=== PATIENT | female | born 1955 | race Caucasian/White ===

== ENCOUNTER 2017-08-16 08:17 | Outpatient (CLI) | payer BC | END 2017-08-16 08:18 | disposition home or self-care (01) | LOC: BICMAMMO 08:17 | PROVIDERS: ATTEND Internal Medicine | DX: Z13.820 Encounter for screening for osteoporosis (principal); M85.80 Other specified disorders of bone density and structure, unspecified site | CPT/HCPCS: 77080 ==

== ENCOUNTER 2018-09-19 08:16 | Outpatient (CLI) | payer BC | END 2018-09-19 08:17 | disposition home or self-care (01) | LOC: BICMAMMO 08:16 | PROVIDERS: ATTEND Internal Medicine | DX: Z12.31 Encounter for screening mammogram for malignant neoplasm of breast (principal) | CPT/HCPCS: 77063; 77067 ==

== ENCOUNTER 2019-05-09 07:35 | Outpatient (CLI) | payer BC ==
--- NOTE | 2019-05-09 11:11 | MRI ---
LUMBAR SPINE MRI NONCONTRAST: INDICATION: Lumbar disk herniation. COMPARISON: No prior imaging comparison. FINDINGS: There is right convexity curvature, centered at the L2 level. Prominent degenerative marrow signal a lteration is present involving the multiple segments of the lumbar spine, most pronounced at L1-2. M ultilevel end plate degeneration, Schmorl's node formation, marginal osteophytosis, and disk space na rrowing present. There is also multilevel bilateral facet osteoarthritis, greatest inferiorly within the lumbar spine, moderate to severe in degree. Conus medullaris terminates at the L1-2 level. L5-S1: There is a broad-based disk-osteophyte with a superimposed moderate central disk protrusion e ffacing the terminal thecal sac with mild to moderate central canal stenosis. There is moderate to s evere left and moderate right neural foraminal stenosis. L4-5: Right asymmetric broad-based disk-osteophyte is present with moderate central canal stenosis m ore pronounced to the right with impingement of the traversing right L5 nerve root. Severe right minda ral foraminal stenosis. No significant left foraminal narrowing. L3-4: Left asymmetric broad-based disk-osteophyte complex with severe central canal stenosis. There is asymmetric right facet osteoarthritis combined with disk-osteophyte complex producing severe righ t neural foraminal stenosis. There is moderate left neural foraminal stenosis. Broad-based disk-ost eophyte with moderate to severe central canal stenosis. Moderate left and mild to moderate right minda ral foraminal stenosis. L1-2: Large left paracentral through left subarticular disk extrusion is present with severe stenosi s of the left aspect of the thecal sac and left subarticular zone with impingement of the traversing left L2 nerve root and severe left neural foraminal stenosis. Mild narrowing of the right neural for amen is present due to disk-osteophyte formation and facet hypertrophy. T12-L1: Right paracentral disk protrusion produces mild effacement of the right ventral thecal sac. IMPRESSION: Severe multilevel degenerative disease throughout the lumbar spine, including multilevel disk protrus ions. This is most pronounced at the L1-2 level where a large left asymmetric disk extrusion produce s severe compromise of the left aspect of the thecal sac, left neural foramen, and left side nerve ro ots, as discussed above. POS: C
== END 2019-05-09 07:36 | disposition home or self-care (01) ==
LOC: SCSMRI 07:35
PROVIDERS: ATTEND Anesthesiology Pain Medicine
DX: M51.26 Other intervertebral disc displacement, lumbar region (principal); M47.816 Spondylosis without myelopathy or radiculopathy, lumbar region
CPT/HCPCS: 72148

== ENCOUNTER 2019-09-26 07:24 | Outpatient (CLI) | payer BC ==
--- NOTE | 2019-09-26 16:47 | EKG ---
Test Reason : Blood Pressure : / mmHG Vent. Rate : 082 BPM Atrial Rate : 082 BPM P-R Int : 148 ms QRS Dur : 074 ms QT Int : 370 ms P-R-T Axes : 081 078 063 degrees QTc Int : 432 ms Poor data quality, interpretation may be adversely affected Normal sinus rhythm Normal ECG When compared with ECG of 18-MAY-1994 11:10, Vent. rate has decreased BY 84 BPM QRS duration has decreased ST no longer depressed in Inferior leads Non-specific change in ST segment in Lateral leads T wave inversion no longer evident in Inferior leads Nonspecific T wave abnormality no longer evident in Lateral leads Confirmed by DR. Adam LAO ([id number]) on 09/26/2019 4:47:00 PM Referred By: Confirmed By:DR. Adam LAO
== END 2019-09-26 07:25 | disposition home or self-care (01) ==
LOC: LABBT 07:24
PROVIDERS: ATTEND Neurological Surgery
DX: Z01.810 Encounter for preprocedural cardiovascular examination (principal); M54.16 Radiculopathy, lumbar region
CPT/HCPCS: 93005; 93010

== ENCOUNTER 2019-10-03 05:35 | Day surgery (SDC) | payer BC ==
[2019-09-26 09:01] VITALS: BMI 20.2
--- NOTE | 2019-10-02 18:57 | HP ---
HISTORY OF PRESENT ILLNESS: Ms. Elias is a pleasant 64-year-old woman presenting with a long protracted course of left flank pain which radiates around to the lateral component on the left side. She has an MRI scan that shows a large L1-2 disk herniation which is likely the culprit. Dr. Taveras has been injecting in which seems to be helping her to some degree. Pain is debilitating when it occurs. She is contemplating, treated surgically and is here to discuss her options. PAST MEDICAL HISTORY: Significant for hypertension, chronic pain syndrome, gastroesophageal reflux disease. CURRENT MEDICATIONS: 1. Meloxicam. 2. Carvedilol. 3. Amlodipine. 4. Gabapentin. 5. Tolterodine. 6. Losartan. 7. Pantoprazole. ALLERGIES: ALLERGIC TO VASOTEC. PAST SURGICAL HISTORY: Unspecified partial left hip replacement, total hip replacement on the right. PHYSICAL EXAMINATION: The patient is alert and oriented x3. Gait is mildly antalgic. Lower extremity motor exam is normal. ASSESSMENT: Lumbar disk herniation with lumbar radiculopathy. PLAN: Dr. Quarles met with the patient, who reviewed her imaging and advocated for L1-2 diskectomy. He explained to the patient the risks, benefits, and alternatives to the procedure. The patient expressed understanding and elected to move forward with surgery as discussed. I do believe the patient is mentally competent and capable of making medical decisions for herself. We will move forward with surgery as planned. Job ID: [id number]
[2019-10-03] MEDS ORDERED: Bupivacaine PF 0.5% 30 ML VIAL ONE (06:24)
[2019-10-03] MEDS ORDERED: Thrombin 5000 UNITS/5 ML VIAL ONE (06:24)
[2019-10-03] MEDS ORDERED: EPINEPHrine 1 MG/ML AMP ONE (06:24)
[2019-10-03] MEDS ORDERED: Midazolam HCl 2 mg/2 ml Vial ONE (06:51)
[2019-10-03] MEDS ORDERED: Fentanyl 100 MCG/2 ML VIAL ONE ×4 (06:57→08:55)
[2019-10-03] MEDS ORDERED: Ondansetron PF 4 MG/2 ML Vial ONE (10:16)
[2019-10-03] MEDS ORDERED: Lidocaine 1% PF 5 ML VIAL ONE (10:16)
[2019-10-03] MEDS ORDERED: Dexamethasone 20 MG/5 ML VIAL ONE (10:16)
[2019-10-03] MEDS ORDERED: EPHEDRINE 25 MG/5 ML SYRINGE ONE (10:16)
[2019-10-03] MEDS ORDERED: PROPOFOL 200 MG/20 ML VIAL ONE (10:16)
[2019-10-03] MEDS ORDERED: PHENYLEPHRINE-NS 100 MCG/ML 10 ML SYRINGE ONE (10:16)
[2019-10-03] MEDS ORDERED: Glycopyrrolate 0.2 MG/ML 5 ML SYRINGE ONE (10:16)
[2019-10-03] MEDS ORDERED: Rocuronium Bromide 10 MG/ML (10ML VIAL) ONE (10:16)
[2019-10-03] MEDS ORDERED: HYDROcodone/Acetaminophen 5/325 mg Tablet ONE (11:05)
--- NOTE | 2019-10-03 11:21 | OP ---
DATE OF PROCEDURE: 10/03/2019 APPEALS BOARD REFEREE: Dionte Aaron PA-C INDICATION: Pain. DIAGNOSIS: Lumbar radiculopathy. PROCEDURES PERFORMED: Left L1-L2 hemilaminectomy, medial facetectomy, diskectomy. ANESTHESIA: General. DESCRIPTION OF PROCEDURE: The patient was brought into the operating room and placed under general anesthesia. She was flipped from the supine to prone position on the operating room table. A linear incision was planned over the L1-L2 segment. After prepping and draping and after an appropriate preoperative pause, the incision was created. The soft tissues were swept left of midline. A self-retaining retractors placed and high-speed cutting drill bit as well as 1 and 2 and 3 mm Kerrisons were used to perform a laminectomy along the inferior aspect of L1 on the left and superior aspect of L2. The facet joint was decompressed laterally in order to decompress the lateral recesses. Disk material was identified at the L1-L2 segment on the left. An annulotomy was created in the disk space, where additional disk material was removed into the lateral recesses and therefore, the exiting L1 and descending L2 nerve roots were decompressed. The wound was irrigated. Hemostasis was maintained throughout. The wound was then closed in anatomic layers and a pressure dressing was applied. There were no known procedural complications. Job ID: [id number]
== END 2019-10-03 11:45 | disposition home or self-care (01) ==
LOC: SDC 05:35
PROVIDERS: ATTEND Neurological Surgery
PROC: 0SB20ZZ Excision of Lumbar Vertebral Disc, Open Approach (ICD-10-PCS; principal; 2019-10-03)
PROC: 01NB0ZZ Release Lumbar Nerve, Open Approach (ICD-10-PCS; principal; 2019-10-03)
DX: M51.16 Intervertebral disc disorders with radiculopathy, lumbar region (principal); I10 Essential (primary) hypertension; K21.9 Gastro-esophageal reflux disease without esophagitis; G89.4 Chronic pain syndrome; Z79.1 Long term (current) use of non-steroidal anti-inflammatories (NSAID); Z79.899 Other long term (current) drug therapy; Z88.5 Allergy status to narcotic agent; Z88.6 Allergy status to analgesic agent; Z88.8 Allergy status to other drugs, medicaments and biological substances; Z96.643 Presence of artificial hip joint, bilateral
CPT/HCPCS: 76000; J0171; J0690; J1100; J2001; J2250; J2405; J2704; J3010; S0020

== ENCOUNTER 2020-06-03 08:07 | Outpatient (CLI) | payer BC ==
--- NOTE | 2020-06-03 09:01 | BD ---
DEXA bone density scan: 06/03/2020 HISTORY: Postmenopausal female undergoing screening for osteoporosis. FINDINGS: Lumbar Spine BMD (g/cm2) L1 1.170 T-Score 1.6 L2 1.366 T-Score 3.1 L3 1.283 T-Score 1.8 L4 1.285 T-Score 2.0 L1-L4 1.273 T-Score 2.1 The performing technologist reports that no additional areas could be evaluated secondary to postoper ative hardware. There is significant degenerative change with associated sclerosis which may falsely elevate the bone mineral density on this exam. IMPRESSION: Bone mineral density appears normal. Please see above discussion. Transcribed Date/Time: 06/03/2020 10:51 AM
== END 2020-06-03 08:08 | disposition home or self-care (01) ==
LOC: BICMAMMO 08:07
PROVIDERS: ATTEND Internal Medicine
DX: M80.00XD Age-related osteoporosis with current pathological fracture, unspecified site, subsequent encounter for fracture with routine healing (principal)
CPT/HCPCS: 77080

== ENCOUNTER 2021-07-25 10:58 | Outpatient (CLI) | payer BC | END 2021-07-25 10:59 | disposition home or self-care (01) | LOC: PET 10:58 | PROVIDERS: ATTEND Internal Medicine Hematology & Oncology | DX: C15.5 Malignant neoplasm of lower third of esophagus (principal) | CPT/HCPCS: 78815; A9552 ==

== ENCOUNTER 2021-12-30 08:51 | Day surgery (SDC) | payer BC ==
[2021-12-30] MEDS ORDERED: diphenhydrAMINE 25 MG CAP ONE (09:59)
[2021-12-30] MEDS ORDERED: Acetaminophen 325 MG TAB ONE (09:59)
[2021-12-30] MEDS ORDERED: Acetaminophen 500 MG TAB ONE (09:59)
[2021-12-30] MEDS ORDERED: Lorazepam 2 MG/ML VIAL ONE (11:35)
[2021-12-30] MEDS ORDERED: Lorazepam 2 MG/ML VIAL SLOW IVP SCH (12:15)
[2021-12-30 13:12] VITALS: BP 147/70; TEMP 97.6
== END 2021-12-30 13:12 | disposition home or self-care (01) ==
LOC: ONC/OP 08:51
PROVIDERS: ATTEND Internal Medicine Hematology & Oncology
PROC: 30233N1 Transfusion of Nonautologous Red Blood Cells into Peripheral Vein, Percutaneous Approach (ICD-10-PCS; principal; 2021-12-30)
DX: D64.9 Anemia, unspecified (principal); D69.6 Thrombocytopenia, unspecified; Z88.5 Allergy status to narcotic agent; Z88.6 Allergy status to analgesic agent; Z88.8 Allergy status to other drugs, medicaments and biological substances
CPT/HCPCS: 36430; 86850; 86900; 86901; J1642; J2060; P9016

== ENCOUNTER 2022-09-05 15:59 | Inpatient (IN) | payer MEDICARE ==
[2022-09-05] MEDS ORDERED: fentaNYL PF 100 MCG/2 ML SYRINGE ONE (17:20)
[2022-09-05] MEDS ORDERED: Vancomycin 1 GM VIAL ONE (17:30)
[2022-09-05] MEDS ORDERED: Neomycin-Polymyxin 1 ML AMP ONE (17:30)
[2022-09-05] MEDS ORDERED: Ondansetron PF 4 MG/2 ML Vial ONE (18:39)
[2022-09-05] MEDS ORDERED: Lidocaine 1% PF 5 ML VIAL ONE (18:39)
[2022-09-05] MEDS ORDERED: Glycopyrrolate 0.2 MG/ML 5 ML SYRINGE ONE (18:39)
[2022-09-05] MEDS ORDERED: PHENYLEPHRINE-NS 100 MCG/ML 10 ML SYRINGE ONE (18:39)
[2022-09-05] MEDS ORDERED: NEOSTIGMINE 3 MG/3 ML SYR 3 MG/3 ML SYRINGE ONE (18:39)
[2022-09-05] MEDS ORDERED: PROPOFOL 200 MG/20 ML VIAL ONE (18:39)
[2022-09-05] MEDS ORDERED: Rocuronium Bromide 10 MG/ML (10ML VIAL) ONE (18:39)
[2022-09-05] MEDS ORDERED: Albumin 5% 500 ML ONE (19:16)
[2022-09-05] MEDS ORDERED: Albumin 5% 0 ML ONE (19:16)
[2022-09-05] MEDS ORDERED: HYDROcodone/Acetaminophen 10/325 mg Tablet PO PRN ×2 (20:02)
[2022-09-05] MEDS ORDERED: tiZANidine HCl 4 MG TAB PO PRN (20:03)
[2022-09-05] MEDS: clonazePAM 0.5 MG TAB PO SCH (21:00)
[2022-09-05] MEDS ORDERED: Bisacodyl 10 MG SUPP PR PRN (21:03)
[2022-09-05] MEDS ORDERED: Bisacodyl 5 MG TAB PO PRN (21:03)
[2022-09-05] MEDS: Lactated Ringer's 1,000 ML IV SCH (21:15)
[2022-09-05] MEDS ORDERED: Dextrose 5% in Water 1,000 ML IV PRN (21:16)
[2022-09-05] MEDS ORDERED: HumaLOG 300 UNITS/3 ML VIAL SC PRN ×2 (21:16)
[2022-09-05] MEDS ORDERED: Dextrose 50% Abboject 50 ML SYRINGE SLOW IVP PRN (21:16)
[2022-09-05] MEDS: Morphine 2 MG/ML VIAL SLOW IVP PRN (21:27)
[2022-09-05] MEDS ORDERED: Ampicillin 2 GM in Sodium Chloride 0.9% 100 ML IVPB SCH (21:30)
[2022-09-05] MEDS: Potassium Chloride 20 MEQ in Premix Bag 1 BAG IVPB SCH (22:18)
[2022-09-05] MEDS: hydrALAZINE 20 MG/ML VIAL SLOW IVP PRN (22:20)
[2022-09-05] MEDS ORDERED: GUAIFENESIN SF SOLN 200 MG/10 ML UDCUP PO PRN (22:40)
[2022-09-06] MEDS: Potassium Chloride 20 MEQ in Premix Bag 1 BAG IVPB SCH (00:15)
[2022-09-06] MEDS ORDERED: Labetalol HCl 100 MG/20 ML VIAL SLOW IVP PRN (00:26)
[2022-09-06] MEDS: Ampicillin 2 GM in Sodium Chloride 0.9% 100 ML IVPB SCH ×6 (01:00→19:50)
[2022-09-06 04:53] LABS: Hemoglobin A1c 5.1 % (4.0-6.0)
[2022-09-06 04:54] LABS: #Lymphocytes 0.6 thou/uL (1.20-3.40); #Monocytes 0.5 thou/uL (0.11-0.59); #Neutrophils 10.3 thou/uL (1.40-6.50); %Eosinophils 0.2 % (0.0-10.0); %Lymphocytes 5.5 % (21.0-51.0); %Monocytes 4.3 % (0.0-10.0); %Neutrophils 90.1 % (42.0-75.0); ALT (SGPT) 17 U/L (8-55); AST (SGOT) 17 U/L (5-34); Alkaline Phosphatase 68 U/L (40-110); Anion Gap 13 mmol/L (10-20); BUN (Urea Nitrogen) 7 mg/dL (9.8-20.1); Bilirubin, Direct 0.3 mg/dL (0.1-0.3); Bilirubin, Total 0.7 mg/dL (0.2-1.2); Calc. Creatinine Clearance 71 mL/min (70-130); Calcium 8.8 mg/dL (7.8-10.44); Carbon Dioxide 29 mmol/L (23-31); Cardiac Risk 3.1 (Less than 4.5); Chloride 95 mmol/L (98-107); Cholesterol 119 mg/dl (< 200 Desired); Estimated GFR 107; Glucose 125 mg/dL (80-115); HDL Cholesterol 38 mg/dL (>60 Neg Risk); Hemoglobin 9.1 g/dL (12.0-16.0); LDL Cholesterol, Calculated 60 mg/dL; Magnesium 1.7 mg/dL (1.6-2.6); Mean Corpuscular HGB CONC 32.3 g/dL (32.0-36.0); Mean Corpuscular Hemoglobin 29.2 pg (27.0-31.0); Mean Corpuscular Volume 90.4 fl (78.0-98.0); Mean Platelet Volume 8.1 fL (7.4-10.4); Platelet Count 297 10x3/uL (130-400); Potassium 3.8 mmol/L (3.5-5.1); Protein, Total 6.1 g/dL (5.8-8.1); RBC Distribution Width 18.1 % (11.5-14.5); Sodium 133 mmol/L (136-145); Triglycerides 104 mg/dL (Less than 150); White Blood Cell (WBC) Count 11.4 10x3/uL (4.8-10.8)
[2022-09-06] MEDS: Morphine 2 MG/ML VIAL SLOW IVP PRN ×2 (07:47→22:39)
[2022-09-06] MEDS ORDERED: Senokot S 8.6-50 MG TAB PO SCH (09:00)
[2022-09-06] MEDS ORDERED: clonazePAM 0.5 MG TAB PO SCH (09:00)
[2022-09-06] MEDS: Ondansetron PF 4 MG/2 ML Vial IVP PRN ×2 (09:35→14:53)
[2022-09-06] MEDS: Losartan 25 MG TAB PO SCH (09:36)
[2022-09-06] MEDS: Folic Acid 1 MG TAB PO SCH (09:36)
[2022-09-06] MEDS: clonazePAM 0.5 MG TAB PO SCH ×3 (09:36→17:52)
[2022-09-06] MEDS: Carvedilol 25 MG TAB PO SCH ×2 (09:36→16:39)
[2022-09-06] MEDS: HYDROcodone/Acetaminophen 5/325 mg Tablet PO PRN ×3 (09:47→19:45)
[2022-09-06] MEDS: Ferrous Sulfate 325 MG TAB PO SCH (09:50)
[2022-09-06] MEDS: Polyethylene Glycol 3350 17 GM Packet PO SCH (09:51)
[2022-09-06] MEDS: Lansoprazole 15 MG/5 ML (BATCHED)UDCUP PO SCH (12:38)
[2022-09-06] MEDS: Lactated Ringer's 1,000 ML IV SCH (17:51)
[2022-09-07] MEDS: Ampicillin 2 GM in Sodium Chloride 0.9% 100 ML IVPB SCH ×6 (00:53→21:05)
[2022-09-07] MEDS: HYDROcodone/Acetaminophen 5/325 mg Tablet PO PRN ×3 (00:53→22:23)
[2022-09-07] MEDS: Lactated Ringer's 1,000 ML IV SCH (03:49)
[2022-09-07] MEDS: hydrALAZINE 20 MG/ML VIAL SLOW IVP PRN (04:39)
[2022-09-07] MEDS: clonazePAM 0.5 MG TAB PO SCH ×2 (04:52→17:23)
[2022-09-07 06:40] LABS: #Lymphocytes 0.7 thou/uL (1.20-3.40); #Monocytes 0.7 thou/uL (0.11-0.59); #Neutrophils 12.8 thou/uL (1.40-6.50); %Eosinophils 0.3 % (0.0-10.0); %Lymphocytes 4.9 % (21.0-51.0); %Monocytes 4.7 % (0.0-10.0); %Neutrophils 90.1 % (42.0-75.0); Hemoglobin 8.4 g/dL (12.0-16.0); Mean Corpuscular HGB CONC 32.8 g/dL (32.0-36.0); Mean Corpuscular Hemoglobin 29.4 pg (27.0-31.0); Mean Corpuscular Volume 89.6 fl (78.0-98.0); Mean Platelet Volume 8.6 fL (7.4-10.4); Platelet Count 260 10x3/uL (130-400); RBC Distribution Width 18.7 % (11.5-14.5); Red Blood Cell (RBC) Count 2.86 mill/uL (4.20-5.40); White Blood Cell (WBC) Count 14.2 10x3/uL (4.8-10.8)
[2022-09-07 07:00] LABS: Anion Gap 13 mmol/L (10-20); BUN (Urea Nitrogen) 9 mg/dL (9.8-20.1); Calc. Creatinine Clearance 75 mL/min (70-130); Calcium 8.4 mg/dL (7.8-10.44); Carbon Dioxide 27 mmol/L (23-31); Chloride 95 mmol/L (98-107); Estimated GFR 108; Glucose 100 mg/dL (80-115); Magnesium 1.6 mg/dL (1.6-2.6); Potassium 2.9 mmol/L (3.5-5.1); Sodium 132 mmol/L (136-145)
[2022-09-07] MEDS ORDERED: Potassium Chloride 10 MEQ TAB PO SCH (08:00)
[2022-09-07] MEDS: Carvedilol 25 MG TAB PO SCH ×2 (10:33→17:24)
[2022-09-07] MEDS: Losartan 25 MG TAB PO SCH (10:33)
[2022-09-07] MEDS: Lansoprazole 15 MG/5 ML (BATCHED)UDCUP PO SCH (10:33)
[2022-09-07] MEDS: Ferrous Sulfate 325 MG TAB PO SCH (10:33)
[2022-09-07] MEDS: Folic Acid 1 MG TAB PO SCH (10:33)
[2022-09-07] MEDS: Polyethylene Glycol 3350 17 GM Packet PO SCH (10:33)
[2022-09-07] MEDS ORDERED: Sodium Chloride 0.9% 500 ML IVPB SCH (12:30)
[2022-09-07] MEDS: D5 NS w/ 40 mEq KCl 1,000 ML IV SCH ×2 (13:19→21:08)
[2022-09-07] MEDS ORDERED: Sodium Chloride 0.9% 500 ML IV SCH (14:00)
[2022-09-08] MEDS: Ampicillin 2 GM in Sodium Chloride 0.9% 100 ML IVPB SCH ×6 (01:02→20:00)
[2022-09-08] MEDS: clonazePAM 0.5 MG TAB PO SCH ×2 (05:36→17:31)
[2022-09-08 06:26] LABS: #Lymphocytes 0.7 thou/uL (1.20-3.40); #Monocytes 0.5 thou/uL (0.11-0.59); %Eosinophils 0.5 % (0.0-10.0); %Lymphocytes 6.7 % (21.0-51.0); %Monocytes 4.5 % (0.0-10.0); %Neutrophils 88.3 % (42.0-75.0); Hemoglobin 7.5 g/dL (12.0-16.0); Mean Corpuscular HGB CONC 31.5 g/dL (32.0-36.0); Mean Corpuscular Hemoglobin 28.4 pg (27.0-31.0); Mean Corpuscular Volume 90.2 fl (78.0-98.0); Mean Platelet Volume 7.8 fL (7.4-10.4); Platelet Count 247 10x3/uL (130-400); RBC Distribution Width 18.4 % (11.5-14.5); Red Blood Cell (RBC) Count 2.64 mill/uL (4.20-5.40); White Blood Cell (WBC) Count 10.1 10x3/uL (4.8-10.8)
[2022-09-08 06:49] LABS: Anion Gap 12 mmol/L (10-20); BUN (Urea Nitrogen) 10 mg/dL (9.8-20.1); Calc. Creatinine Clearance 78 mL/min (70-130); Carbon Dioxide 27 mmol/L (23-31); Chloride 99 mmol/L (98-107); Estimated GFR 109; Glucose 109 mg/dL (80-115); Magnesium 1.5 mg/dL (1.6-2.6); Potassium 2.7 mmol/L (3.5-5.1); Sodium 135 mmol/L (136-145)
[2022-09-08] MEDS: D5 NS w/ 40 mEq KCl 1,000 ML IV SCH ×2 (07:26→18:12)
[2022-09-08] MEDS: Carvedilol 25 MG TAB PO SCH ×2 (08:45→17:31)
[2022-09-08] MEDS: Lansoprazole 15 MG/5 ML (BATCHED)UDCUP PO SCH (08:46)
[2022-09-08] MEDS: Ferrous Sulfate 325 MG TAB PO SCH (08:46)
[2022-09-08] MEDS: Folic Acid 1 MG TAB PO SCH (08:46)
[2022-09-08] MEDS: Losartan 25 MG TAB PO SCH (08:46)
[2022-09-08] MEDS: HYDROcodone/Acetaminophen 5/325 mg Tablet PO PRN ×3 (08:53→21:22)
[2022-09-08] MEDS ORDERED: Magnesium 2 GM/50 ML(in water) 2 GM in Premix Bag 1 BAG IVPB SCH (09:00)
[2022-09-08] MEDS: Polyethylene Glycol 3350 17 GM Packet PO SCH (10:11)
[2022-09-08] MEDS ORDERED: Floranex 1 GM Packet PO SCH ×2 (11:15→12:00)
[2022-09-08] MEDS: Potassium Chloride 20 MEQ/100 ML PREMIX BAG IVPB SCH ×2 (11:26→14:07)
[2022-09-08] MEDS: cefTRIAXone\\ROCEPHIN 2 GM in Sodium Chloride 0.9% 100 ML IVPB SCH (16:12)
[2022-09-08] MEDS: Morphine 2 MG/ML VIAL SLOW IVP PRN (20:00)
[2022-09-09] MEDS: Morphine 2 MG/ML VIAL SLOW IVP PRN ×2 (00:25→04:04)
[2022-09-09] MEDS: Ampicillin 2 GM in Sodium Chloride 0.9% 100 ML IVPB SCH ×6 (00:25→20:54)
[2022-09-09] MEDS: cefTRIAXone\\ROCEPHIN 2 GM in Sodium Chloride 0.9% 100 ML IVPB SCH ×2 (01:27→14:33)
[2022-09-09] MEDS: HYDROcodone/Acetaminophen 5/325 mg Tablet PO PRN ×3 (03:10→15:22)
[2022-09-09] MEDS: clonazePAM 0.5 MG TAB PO SCH ×2 (05:21→17:36)
[2022-09-09] MEDS: D5 NS w/ 40 mEq KCl 1,000 ML IV SCH ×3 (05:22→22:56)
[2022-09-09 06:22] LABS: #Eosinphils 0.1 thou/uL (0.0-0.7); #Lymphocytes 0.5 thou/uL (1.20-3.40); #Monocytes 0.5 thou/uL (0.11-0.59); #Neutrophils 8.8 thou/uL (1.40-6.50); %Eosinophils 0.6 % (0.0-10.0); %Lymphocytes 5.4 % (21.0-51.0); Mean Corpuscular HGB CONC 31.6 g/dL (32.0-36.0); Mean Corpuscular Hemoglobin 29.4 pg (27.0-31.0); Mean Platelet Volume 9.5 fL (7.4-10.4); Platelet Count 123 10x3/uL (130-400); RBC Distribution Width 18.5 % (11.5-14.5); Red Blood Cell (RBC) Count 2.04 mill/uL (4.20-5.40); White Blood Cell (WBC) Count 9.9 10x3/uL (4.8-10.8)
[2022-09-09 07:21] LABS: #Eosinphils 0.1 thou/uL (0.0-0.7); #Lymphocytes 0.6 thou/uL (1.20-3.40); #Monocytes 0.4 thou/uL (0.11-0.59); #Neutrophils 9.4 thou/uL (1.40-6.50); %Eosinophils 0.6 % (0.0-10.0); %Lymphocytes 6.1 % (21.0-51.0); %Monocytes 3.7 % (0.0-10.0); %Neutrophils 89.7 % (42.0-75.0); Hemoglobin 6.1 g/dL (12.0-16.0); Mean Corpuscular Hemoglobin 28.8 pg (27.0-31.0); Mean Corpuscular Volume 90.1 fl (78.0-98.0); Mean Platelet Volume 7.7 fL (7.4-10.4); Platelet Count 205 10x3/uL (130-400); RBC Distribution Width 18.2 % (11.5-14.5); Red Blood Cell (RBC) Count 2.11 mill/uL (4.20-5.40); White Blood Cell (WBC) Count 10.5 10x3/uL (4.8-10.8)
[2022-09-09] MEDS: Lansoprazole 15 MG/5 ML (BATCHED)UDCUP PO SCH (09:37)
[2022-09-09] MEDS: Carvedilol 25 MG TAB PO SCH ×2 (09:39→17:37)
[2022-09-09] MEDS: Ferrous Sulfate 325 MG TAB PO SCH (09:39)
[2022-09-09] MEDS: Floranex 1 GM Packet PO SCH (09:39)
[2022-09-09] MEDS: Folic Acid 1 MG TAB PO SCH (09:39)
[2022-09-09 10:22] LABS: Anion Gap 10 mmol/L (10-20); BUN (Urea Nitrogen) 11 mg/dL (9.8-20.1); Calc. Creatinine Clearance 73 mL/min (70-130); Calcium 7.5 mg/dL (7.8-10.44); Carbon Dioxide 22 mmol/L (23-31); Chloride 105 mmol/L (98-107); Estimated GFR 107; Glucose 134 mg/dL (80-115); Magnesium 1.8 mg/dL (1.6-2.6); Potassium 3.4 mmol/L (3.5-5.1); Sodium 134 mmol/L (136-145)
[2022-09-09 10:45] LABS: BUN (Urea Nitrogen) 11 mg/dL (9.8-20.1); Calc. Creatinine Clearance 75 mL/min (70-130); Calcium 7.4 mg/dL (7.8-10.44); Carbon Dioxide 21 mmol/L (23-31); Chloride 105 mmol/L (98-107); Estimated GFR 108; Glucose 147 mg/dL (80-115); Magnesium 1.9 mg/dL (1.6-2.6); Potassium 3.9 mmol/L (3.5-5.1); Sodium 134 mmol/L (136-145)
[2022-09-09] MEDS: Polyethylene Glycol 3350 17 GM Packet PO SCH (10:56)
[2022-09-09] MEDS: Losartan 25 MG TAB PO SCH ×2 (10:56→15:47)
[2022-09-09 13:18] LABS: Anion Gap 12 mmol/L (10-20)
[2022-09-09] MEDS ORDERED: Furosemide 40 MG/4 ML VIAL ONE (18:28)
[2022-09-09] MEDS ORDERED: Magnesium 2 GM/50 ML(in water) 2 GM in Premix Bag 1 BAG IVPB SCH (19:30)
[2022-09-09] MEDS ORDERED: Furosemide 40 MG/4 ML VIAL SLOW IVP SCH (19:45)
[2022-09-09 20:35] LABS: Hemoglobin 10.9 g/dL (12.0-16.0); Mean Corpuscular HGB CONC 32.6 g/dL (32.0-36.0); Mean Corpuscular Hemoglobin 29.8 pg (27.0-31.0); Mean Corpuscular Volume 91.4 fl (78.0-98.0); Mean Platelet Volume 8.1 fL (7.4-10.4); Platelet Count 234 10x3/uL (130-400); RBC Distribution Width 16.6 % (11.5-14.5); Red Blood Cell (RBC) Count 3.65 mill/uL (4.20-5.40)
[2022-09-09 20:46] LABS: ALT (SGPT) 13 U/L (8-55); AST (SGOT) 18 U/L (5-34); Albumin 2.7 g/dL (3.4-4.8); Alkaline Phosphatase 68 U/L (40-110); Anion Gap 13 mmol/L (10-20); BUN (Urea Nitrogen) 11 mg/dL (9.8-20.1); Bilirubin, Total 0.7 mg/dL (0.2-1.2); Calc. Creatinine Clearance 67 mL/min (70-130); Carbon Dioxide 24 mmol/L (23-31); Chloride 100 mmol/L (98-107); Estimated GFR 105; Globulin 3.1 g/dL (2.4-3.5); Glucose 144 mg/dL (80-115); Magnesium 1.6 mg/dL (1.6-2.6); Potassium 3.3 mmol/L (3.5-5.1); Protein, Total 5.8 g/dL (5.8-8.1); Sodium 134 mmol/L (136-145)
[2022-09-09 20:50] LABS: Troponin I 0.072 ng/mL (< 0.028)
[2022-09-09] MEDS: Pantoprazole 40 MG VIAL IVP SCH (20:55)
[2022-09-09] MEDS ORDERED: Potassium Chloride 40 MEQ in Premix Bag 1 BAG IVPB SCH (22:00)
[2022-09-09] MEDS: Potassium Chloride 20 MEQ in Premix Bag 1 BAG IVPB SCH ×2 (23:07→23:31)
[2022-09-09 23:38] LABS: Troponin I 0.118 ng/mL (< 0.028)
[2022-09-10] MEDS ORDERED: Piperacillin/Tazobactam 3.375 GM in Sodium Chloride 0.9% 100 ML IVPB SCH ×3 (00:01→18:00)
[2022-09-10] MEDS ORDERED: Vancomycin 1 GM in Premix Bag 1 BAG IVPB SCH ×3 (00:15→09:00)
[2022-09-10] MEDS: HYDROcodone/Acetaminophen 5/325 mg Tablet PO PRN (00:39)
[2022-09-10] MEDS: Ampicillin 2 GM in Sodium Chloride 0.9% 100 ML IVPB SCH ×2 (00:48→05:29)
[2022-09-10] MEDS: cefTRIAXone\\ROCEPHIN 2 GM in Sodium Chloride 0.9% 100 ML IVPB SCH (01:05)
[2022-09-10] MEDS ORDERED: Albumin 25% 25 GM/100 ML BOT IVPB SCH (02:00)
[2022-09-10] MEDS: Acetaminophen 325 MG TAB PO PRN (03:33)
[2022-09-10] MEDS ORDERED: Furosemide 40 MG/4 ML VIAL SLOW IVP SCH (04:00)
[2022-09-10 05:11] LABS: Hemoglobin 10.2 g/dL (12.0-16.0); Mean Corpuscular HGB CONC 33.2 g/dL (32.0-36.0); Mean Corpuscular Hemoglobin 30.3 pg (27.0-31.0); Mean Corpuscular Volume 91.4 fl (78.0-98.0); Mean Platelet Volume 8.2 fL (7.4-10.4); Platelet Count 216 10x3/uL (130-400); RBC Distribution Width 16.8 % (11.5-14.5); Red Blood Cell (RBC) Count 3.35 mill/uL (4.20-5.40); White Blood Cell (WBC) Count 18.3 10x3/uL (4.8-10.8)
[2022-09-10 05:25] LABS: Anion Gap 14 mmol/L (10-20); BUN (Urea Nitrogen) 13 mg/dL (9.8-20.1); Calc. Creatinine Clearance 64 mL/min (70-130); Calcium 7.9 mg/dL (7.8-10.44); Carbon Dioxide 24 mmol/L (23-31); Chloride 101 mmol/L (98-107); Estimated GFR 104; Glucose 136 mg/dL (80-115); Magnesium 1.8 mg/dL (1.6-2.6); Potassium 3.5 mmol/L (3.5-5.1); Sodium 135 mmol/L (136-145)
[2022-09-10] MEDS: Piperacillin/Tazobactam 3.375 GM in Sodium Chloride 0.9% 100 ML IVPB SCH ×3 (05:29→23:41)
[2022-09-10] MEDS: clonazePAM 0.5 MG TAB PO SCH ×2 (05:29→19:12)
[2022-09-10 05:49] LABS: Bilirubin Negative (Negative); Blood, Urine Trace (Negative); Clarity Clear (Clear); Glucose, Urine (Dipstick) Normal (Negative); Ketone, Urine Negative (Negative); Leukocyte Negative Leu/uL (Negative); Nitrite Negative (Negative); Protein, Urine (Dipstick) Negative (Neg-Trace); RBC/HPF 0-3 HPF (0-3); Specific Gravity, Urine 1.013 (1.002-1.036); Squamous Epithelial None Seen HPF (0-3); Urobilinogen Normal mg/dL (Less than 2); Yeast-Budding 2+ HPF (None Seen); pH, Urine 5.5 (5.0-9.0)
[2022-09-10 05:50] LABS: Bacteria/HPF 1+ HPF (None Seen)
[2022-09-10 06:12] LABS: Anisocytosis SLIGHT = 6-15 cells (100X) (0-5/hpf); Band 7 % (5-11); Lymphocytes 2 % (21-51); MDiff Complete? YES; Neutrophil 91 % (42-75); Platelet Clumps SLIGHT; Platelet Morphology Comment Appears Adequate; Polychromasia SLIGHT = 2-3 cells (100X) (0-2/hpf); Toxic Granulation SLIGHT; Vacuoles SLIGHT
[2022-09-10] MEDS: Losartan 25 MG TAB PO SCH (09:53)
[2022-09-10] MEDS: Floranex 1 GM Packet PO SCH (09:53)
[2022-09-10] MEDS: Carvedilol 25 MG TAB PO SCH ×2 (09:53→19:12)
[2022-09-10] MEDS: Folic Acid 1 MG TAB PO SCH (09:53)
[2022-09-10] MEDS: Polyethylene Glycol 3350 17 GM Packet PO SCH (09:53)
[2022-09-10] MEDS: Pantoprazole 40 MG VIAL IVP SCH ×2 (09:53→21:54)
[2022-09-10] MEDS: D5 NS w/ 40 mEq KCl 1,000 ML IV SCH (11:01)
[2022-09-10] MEDS: Vancomycin HCl 750 MG in Sodium Chloride 0.9% 250 ML 250 ML IVPB SCH ×2 (15:29→23:41)
[2022-09-10] MEDS ORDERED: Furosemide 100 MG/10 ML VIAL SLOW IVP SCH (18:15)
[2022-09-10] MEDS ORDERED: Metoprolol Tartrate 5 MG/5 ML VIAL IVP PRN (18:28)
[2022-09-10] MEDS ORDERED: Magnesium 2 GM/50 ML(in water) 2 GM in Premix Bag 1 BAG IVPB SCH (21:30)
[2022-09-10] MEDS: metroNIDAZOLE 500 MG in Premix Bag 1 BAG IVPB SCH (21:55)
[2022-09-10] MEDS: Albumin 25% 25 GM/100 ML BOT IVPB SCH (23:42)
[2022-09-11 01:37] LABS: Legionella Urinary Ag Negative (Negative); Strep pneumo Urine Ag NEGATIVE (NEGATIVE)
[2022-09-11 01:59] LABS: SARS-CoV-2 NAA Rapid Test Not Detected (NotDetected)
[2022-09-11 03:57] LABS: #Lymphocytes 0.5 thou/uL (1.20-3.40); #Monocytes 0.4 thou/uL (0.11-0.59); #Neutrophils 7.9 thou/uL (1.40-6.50); %Basophils 0.2 % (0.0-1.0); %Eosinophils 0.2 % (0.0-10.0); %Lymphocytes 5.1 % (21.0-51.0); %Monocytes 4.1 % (0.0-10.0); %Neutrophils 90.3 % (42.0-75.0); Hemoglobin 8.2 g/dL (12.0-16.0); Mean Corpuscular HGB CONC 33.2 g/dL (32.0-36.0); Mean Corpuscular Hemoglobin 30.3 pg (27.0-31.0); Mean Corpuscular Volume 91.1 fl (78.0-98.0); Mean Platelet Volume 8.4 fL (7.4-10.4); Platelet Count 156 10x3/uL (130-400); RBC Distribution Width 16.8 % (11.5-14.5); Red Blood Cell (RBC) Count 2.71 mill/uL (4.20-5.40); White Blood Cell (WBC) Count 8.8 10x3/uL (4.8-10.8)
[2022-09-11] MEDS ORDERED: Furosemide 40 MG/4 ML VIAL SLOW IVP SCH (04:00)
[2022-09-11 04:20] LABS: Anion Gap 12 mmol/L (10-20); BUN (Urea Nitrogen) 11 mg/dL (9.8-20.1); Calc. Creatinine Clearance 70 mL/min (70-130); Calcium 8.3 mg/dL (7.8-10.44); Carbon Dioxide 29 mmol/L (23-31); Chloride 99 mmol/L (98-107); Estimated GFR 106; Glucose 110 mg/dL (80-115); Magnesium 2.1 mg/dL (1.6-2.6); Sodium 138 mmol/L (136-145)
[2022-09-11] MEDS ORDERED: Electrolyte Replacement Protocol 1 EACH FS SCH (04:45)
[2022-09-11] MEDS: Potassium Chloride 20 MEQ in Premix Bag 1 BAG IVPB SCH ×2 (04:53→09:05)
[2022-09-11] MEDS: Albumin 25% 25 GM/100 ML BOT IVPB SCH (05:02)
[2022-09-11] MEDS: metroNIDAZOLE 500 MG in Premix Bag 1 BAG IVPB SCH ×3 (05:02→21:50)
[2022-09-11] MEDS: clonazePAM 0.5 MG TAB PO SCH ×2 (05:02→17:39)
[2022-09-11] MEDS ORDERED: Potassium Bicarbonate/Cit Ac 20 MEQ TAB PER TUBE SCH (05:30)
[2022-09-11] MEDS ORDERED: Magnesium 2 GM/50 ML(in water) 2 GM in Premix Bag 1 BAG IVPB SCH (08:00)
[2022-09-11] MEDS: Piperacillin/Tazobactam 3.375 GM in Sodium Chloride 0.9% 100 ML IVPB SCH ×3 (09:06→23:38)
[2022-09-11] MEDS: Carvedilol 25 MG TAB PO SCH ×2 (09:07→17:40)
[2022-09-11] MEDS: Folic Acid 1 MG TAB PO SCH (09:07)
[2022-09-11] MEDS: Losartan 25 MG TAB PO SCH (09:07)
[2022-09-11] MEDS: Floranex 1 GM Packet PO SCH (09:07)
[2022-09-11] MEDS: Polyethylene Glycol 3350 17 GM Packet PO SCH (09:08)
[2022-09-11] MEDS: Pantoprazole 40 MG VIAL IVP SCH ×2 (09:08→21:49)
[2022-09-11] MEDS: HYDROcodone/Acetaminophen 5/325 mg Tablet PO PRN ×4 (10:13→23:00)
[2022-09-11 10:31] LABS: Anion Gap 12 mmol/L (10-20); BUN (Urea Nitrogen) 11 mg/dL (9.8-20.1); Calc. Creatinine Clearance 68 mL/min (70-130); Calcium 8.9 mg/dL (7.8-10.44); Carbon Dioxide 35 mmol/L (23-31); Chloride 94 mmol/L (98-107); Estimated GFR 106; Glucose 103 mg/dL (80-115); Magnesium 2.4 mg/dL (1.6-2.6); Sodium 139 mmol/L (136-145)
[2022-09-11 10:37] LABS: Potassium 2.1 mmol/L (3.5-5.1)
[2022-09-11 10:59] LABS: Vancomycin, Trough 16.4 ug/mL
[2022-09-11] MEDS: Vancomycin HCl 750 MG in Sodium Chloride 0.9% 250 ML 250 ML IVPB SCH ×2 (12:50→23:38)
[2022-09-11] MEDS: Potassium Chloride 40 MEQ in Sodium Chloride 0.9% 250 ML 250 ML IVPB SCH ×2 (14:30→17:43)
[2022-09-12 04:52] LABS: #Eosinphils 0.1 thou/uL (0.0-0.7); #Lymphocytes 0.3 thou/uL (1.20-3.40); #Monocytes 0.3 thou/uL (0.11-0.59); #Neutrophils 6.1 thou/uL (1.40-6.50); %Basophils 0.2 % (0.0-1.0); %Eosinophils 1.1 % (0.0-10.0); %Lymphocytes 4.8 % (21.0-51.0); %Monocytes 3.9 % (0.0-10.0); Mean Corpuscular HGB CONC 32.6 g/dL (32.0-36.0); Mean Corpuscular Hemoglobin 30.2 pg (27.0-31.0); Mean Corpuscular Volume 92.7 fl (78.0-98.0); Mean Platelet Volume 8.4 fL (7.4-10.4); Platelet Count 145 10x3/uL (130-400); RBC Distribution Width 16.8 % (11.5-14.5); Red Blood Cell (RBC) Count 2.66 mill/uL (4.20-5.40); White Blood Cell (WBC) Count 6.8 10x3/uL (4.8-10.8)
[2022-09-12] MEDS: clonazePAM 0.5 MG TAB PO SCH ×2 (05:26→18:40)
[2022-09-12] MEDS: metroNIDAZOLE 500 MG in Premix Bag 1 BAG IVPB SCH ×3 (05:26→21:11)
[2022-09-12 07:23] LABS: Chloride 99 mmol/L (98-107); Potassium 3.1 mmol/L (3.5-5.1); Sodium 138 mmol/L (136-145)
[2022-09-12 07:24] LABS: Calcium 8.4 mg/dL (7.8-10.44); Glucose 131 mg/dL (80-115)
[2022-09-12 07:26] LABS: Anion Gap 8 mmol/L (10-20); Carbon Dioxide 34 mmol/L (23-31)
[2022-09-12 07:27] LABS: Calc. Creatinine Clearance 73 mL/min (70-130); Estimated GFR 107
[2022-09-12 07:28] LABS: BUN (Urea Nitrogen) 15 mg/dL (9.8-20.1)
[2022-09-12] MEDS: HYDROcodone/Acetaminophen 5/325 mg Tablet PO PRN (08:00)
[2022-09-12] MEDS ORDERED: Potassium Chloride 20 MEQ TAB PO SCH (08:00)
[2022-09-12] MEDS: Carvedilol 25 MG TAB PO SCH ×2 (08:01→16:16)
[2022-09-12] MEDS ORDERED: Magnesium 2 GM/50 ML(in water) 2 GM in Premix Bag 1 BAG IVPB SCH (09:00)
[2022-09-12] MEDS: Piperacillin/Tazobactam 3.375 GM in Sodium Chloride 0.9% 100 ML IVPB SCH ×2 (10:08→16:08)
[2022-09-12] MEDS: Losartan 25 MG TAB PO SCH (10:18)
[2022-09-12] MEDS: Folic Acid 1 MG TAB PO SCH (10:18)
[2022-09-12] MEDS: Polyethylene Glycol 3350 17 GM Packet PO SCH (10:23)
[2022-09-12] MEDS: Pantoprazole 40 MG VIAL IVP SCH ×2 (10:29→21:11)
[2022-09-12] MEDS: Floranex 1 GM Packet PO SCH (10:58)
[2022-09-12] MEDS: Vancomycin HCl 750 MG in Sodium Chloride 0.9% 250 ML 250 ML IVPB SCH (14:31)
[2022-09-13] MEDS: Piperacillin/Tazobactam 3.375 GM in Sodium Chloride 0.9% 100 ML IVPB SCH ×3 (00:12→16:03)
[2022-09-13] MEDS: Vancomycin HCl 750 MG in Sodium Chloride 0.9% 250 ML 250 ML IVPB SCH ×2 (00:13→19:51)
[2022-09-13] MEDS: Acetaminophen 325 MG TAB PO PRN ×3 (00:13→13:22)
[2022-09-13] MEDS: HYDROcodone/Acetaminophen 5/325 mg Tablet PO PRN ×3 (03:28→16:02)
[2022-09-13] MEDS: metroNIDAZOLE 500 MG in Premix Bag 1 BAG IVPB SCH ×3 (05:48→21:01)
[2022-09-13] MEDS: clonazePAM 0.5 MG TAB PO SCH ×2 (05:48→17:49)
[2022-09-13] MEDS: Carvedilol 25 MG TAB PO SCH ×2 (08:00→16:03)
[2022-09-13] MEDS: Folic Acid 1 MG TAB PO SCH (08:00)
[2022-09-13] MEDS: Pantoprazole 40 MG VIAL IVP SCH ×2 (08:00→21:01)
[2022-09-13] MEDS: Losartan 25 MG TAB PO SCH (08:00)
[2022-09-13] MEDS: Floranex 1 GM Packet PO SCH (10:38)
[2022-09-13] MEDS: Polyethylene Glycol 3350 17 GM Packet PO SCH (10:39)
[2022-09-13 11:37] LABS: #Eosinphils 0.1 thou/uL (0.0-0.7); #Lymphocytes 0.6 thou/uL (1.20-3.40); #Monocytes 0.4 thou/uL (0.11-0.59); #Neutrophils 5.6 thou/uL (1.40-6.50); %Eosinophils 1.1 % (0.0-10.0); %Lymphocytes 8.5 % (21.0-51.0); %Monocytes 5.4 % (0.0-10.0); %Neutrophils 85.1 % (42.0-75.0); Mean Corpuscular HGB CONC 32.2 g/dL (32.0-36.0); Mean Corpuscular Hemoglobin 29.9 pg (27.0-31.0); Mean Corpuscular Volume 92.9 fl (78.0-98.0); Mean Platelet Volume 8.5 fL (7.4-10.4); Platelet Count 130 10x3/uL (130-400); RBC Distribution Width 17.1 % (11.5-14.5); Red Blood Cell (RBC) Count 2.66 mill/uL (4.20-5.40); White Blood Cell (WBC) Count 6.5 10x3/uL (4.8-10.8)
[2022-09-13 11:48] LABS: Anion Gap 9 mmol/L (10-20); BUN (Urea Nitrogen) 12 mg/dL (9.8-20.1); Calc. Creatinine Clearance 78 mL/min (70-130); Calcium 7.9 mg/dL (7.8-10.44); Carbon Dioxide 30 mmol/L (23-31); Chloride 100 mmol/L (98-107); Estimated GFR 109; Glucose 120 mg/dL (80-115); Potassium 3.3 mmol/L (3.5-5.1); Sodium 136 mmol/L (136-145)
[2022-09-13 11:56] LABS: Vancomycin, Trough 13.5 ug/mL
[2022-09-13] MEDS: Vancomycin 1 GM in Premix Bag 1 BAG IVPB SCH (12:28)
[2022-09-13] MEDS ORDERED: Potassium Chloride 20 MEQ TAB PO SCH (13:45)
[2022-09-13] MEDS ORDERED: Potassium Bicarbonate/Cit Ac 20 MEQ TAB PO SCH (15:30)
[2022-09-14] MEDS: Piperacillin/Tazobactam 3.375 GM in Sodium Chloride 0.9% 100 ML IVPB SCH ×4 (00:12→23:35)
[2022-09-14] MEDS: Vancomycin 1 GM in Premix Bag 1 BAG IVPB SCH ×3 (00:12→23:34)
[2022-09-14] MEDS: Acetaminophen 325 MG TAB PO PRN (00:13)
[2022-09-14] MEDS ORDERED: Acetaminophen 650 MG/20.3 ML UDCUP PO PRN (01:26)
[2022-09-14] MEDS ORDERED: Acetaminophen 650 MG/20.3 ML UDCUP PO SCH (01:30)
[2022-09-14] MEDS ORDERED: Sodium Chloride 0.9% 250 ML IV SCH ×2 (01:30→03:30)
[2022-09-14 02:09] LABS: Hemoglobin 8.9 g/dL (12.0-16.0); Mean Corpuscular HGB CONC 32.7 g/dL (32.0-36.0); Mean Corpuscular Hemoglobin 30.4 pg (27.0-31.0); Mean Corpuscular Volume 92.7 fl (78.0-98.0); Mean Platelet Volume 9.1 fL (7.4-10.4); Platelet Count 179 10x3/uL (130-400); RBC Distribution Width 17.1 % (11.5-14.5); Red Blood Cell (RBC) Count 2.93 mill/uL (4.20-5.40); White Blood Cell (WBC) Count 9.2 10x3/uL (4.8-10.8)
[2022-09-14 02:19] LABS: Lactic Acid 1.7 mmol/L (0.5-2.2)
[2022-09-14 02:26] LABS: Anion Gap 13 mmol/L (10-20); BUN (Urea Nitrogen) 10 mg/dL (9.8-20.1); Calc. Creatinine Clearance 76 mL/min (70-130); Calcium 8.3 mg/dL (7.8-10.44); Carbon Dioxide 29 mmol/L (23-31); Chloride 99 mmol/L (98-107); Estimated GFR 108; Glucose 115 mg/dL (80-115); Potassium 3.8 mmol/L (3.5-5.1); Sodium 137 mmol/L (136-145)
[2022-09-14 03:11] LABS: Anisocytosis SLIGHT = 6-15 cells (100X) (0-5/hpf); Band 9 % (5-11); Eosinophils 1 % (0-10); Hypochromia SLIGHT = 6-15 cells (100X) (0-5/hpf); Lymphocytes 2 % (21-51); MDiff Complete? YES; Monocytes 1 % (0-10); Neutrophil 87 % (42-75); Platelet Morphology Comment Appears Adequate; Polychromasia SLIGHT = 2-3 cells (100X) (0-2/hpf); Vacuoles SLIGHT
[2022-09-14] MEDS ORDERED: Acetaminophen 325 MG/10.15 ML UDCUP PO SCH (03:30)
[2022-09-14] MEDS: metroNIDAZOLE 500 MG in Premix Bag 1 BAG IVPB SCH ×3 (05:09→21:55)
[2022-09-14] MEDS: clonazePAM 0.5 MG TAB PO SCH ×2 (06:22→17:19)
[2022-09-14] MEDS: Folic Acid 1 MG TAB PO SCH (08:38)
[2022-09-14] MEDS: Losartan 25 MG TAB PO SCH (08:38)
[2022-09-14] MEDS: Carvedilol 25 MG TAB PO SCH ×2 (08:38→17:19)
[2022-09-14] MEDS: Pantoprazole 40 MG VIAL IVP SCH ×2 (08:38→21:54)
[2022-09-14] MEDS: Polyethylene Glycol 3350 17 GM Packet PO SCH (08:39)
[2022-09-14] MEDS: Floranex 1 GM Packet PO SCH (08:59)
[2022-09-14] MEDS: HYDROcodone/Acetaminophen 5/325 mg Tablet PO PRN ×2 (09:52→14:26)
[2022-09-14] MEDS ORDERED: Polyethylene Glycol 3350 17 GM Packet PO PRN (17:09)
[2022-09-14 19:36] LABS: Bacteria/HPF 2+ HPF (None Seen); Bilirubin Negative (Negative); Blood, Urine Negative (Negative); Calcium Oxalate Crystals 2+ HPF (None Seen); Clarity Turbid (Clear); Glucose, Urine (Dipstick) Normal (Negative); Ketone, Urine Trace mg/dL (Negative); Leukocyte 250 Leu/uL (Negative); Nitrite Negative (Negative); Protein, Urine (Dipstick) 50 mg/dL (Neg-Trace); RBC/HPF 0-3 HPF (0-3); Specific Gravity, Urine 1.049 (1.002-1.036); Squamous Epithelial None Seen HPF (0-3); Urobilinogen Normal mg/dL (Less than 2); WBC/HPF Greater than 50 HPF (0-3); Yeast-Budding 2+ HPF (None Seen)
[2022-09-14 23:36] LABS: Vancomycin, Trough 18.5 ug/mL
[2022-09-15] MEDS: metroNIDAZOLE 500 MG in Premix Bag 1 BAG IVPB SCH ×3 (05:10→21:03)
[2022-09-15] MEDS: clonazePAM 0.5 MG TAB PO SCH ×2 (05:10→17:01)
[2022-09-15 05:25] LABS: #Eosinphils 0.1 thou/uL (0.0-0.7); #Lymphocytes 0.4 thou/uL (1.20-3.40); #Monocytes 0.4 thou/uL (0.11-0.59); #Neutrophils 7.4 thou/uL (1.40-6.50); %Basophils 0.4 % (0.0-1.0); %Lymphocytes 5.1 % (21.0-51.0); %Monocytes 4.3 % (0.0-10.0); %Neutrophils 89.2 % (42.0-75.0); Mean Corpuscular HGB CONC 31.4 g/dL (32.0-36.0); Mean Corpuscular Hemoglobin 29.5 pg (27.0-31.0); Mean Corpuscular Volume 93.9 fl (78.0-98.0); Mean Platelet Volume 9.6 fL (7.4-10.4); Platelet Count 159 10x3/uL (130-400); RBC Distribution Width 17.7 % (11.5-14.5); Red Blood Cell (RBC) Count 3.06 mill/uL (4.20-5.40); White Blood Cell (WBC) Count 8.3 10x3/uL (4.8-10.8)
[2022-09-15 06:04] LABS: Anion Gap 13 mmol/L (10-20); BUN (Urea Nitrogen) 14 mg/dL (9.8-20.1); Calc. Creatinine Clearance 65 mL/min (70-130); Calcium 8.5 mg/dL (7.8-10.44); Carbon Dioxide 27 mmol/L (23-31); Chloride 100 mmol/L (98-107); Estimated GFR 105; Glucose 136 mg/dL (80-115); Sodium 137 mmol/L (136-145)
[2022-09-15] MEDS: Carvedilol 25 MG TAB PO SCH ×2 (07:52→16:09)
[2022-09-15] MEDS: HYDROcodone/Acetaminophen 5/325 mg Tablet PO PRN ×3 (07:52→21:11)
[2022-09-15] MEDS: Acetaminophen 325 MG TAB PO PRN (07:52)
[2022-09-15] MEDS: Piperacillin/Tazobactam 3.375 GM in Sodium Chloride 0.9% 100 ML IVPB SCH ×3 (07:56→23:44)
[2022-09-15] MEDS ORDERED: Potassium Chloride 20 MEQ TAB PO SCH (08:00)
[2022-09-15] MEDS: Folic Acid 1 MG TAB PO SCH (09:40)
[2022-09-15] MEDS: Losartan 25 MG TAB PO SCH (09:41)
[2022-09-15] MEDS: Floranex 1 GM Packet PO SCH (09:41)
[2022-09-15] MEDS: Pantoprazole 40 MG VIAL IVP SCH ×2 (09:41→21:01)
[2022-09-15] MEDS: Vancomycin 1 GM in Premix Bag 1 BAG IVPB SCH ×2 (11:15→23:44)
[2022-09-15] MEDS: Potassium Bicarbonate/Cit Ac 20 MEQ TAB PO SCH ×2 (11:16→16:08)
[2022-09-15] MEDS: Micafungin 100 MG in Sodium Chloride 0.9% 100 ML IVPB SCH (12:16)
[2022-09-15] MEDS ORDERED: Iopamidol-370 76% 500 ML 1 ML ONE (13:55)
[2022-09-16] MEDS: HYDROcodone/Acetaminophen 5/325 mg Tablet PO PRN ×2 (04:22→18:29)
[2022-09-16] MEDS: clonazePAM 0.5 MG TAB PO SCH ×2 (05:21→18:25)
[2022-09-16] MEDS: metroNIDAZOLE 500 MG in Premix Bag 1 BAG IVPB SCH ×3 (05:22→21:57)
[2022-09-16] MEDS: Piperacillin/Tazobactam 3.375 GM in Sodium Chloride 0.9% 100 ML IVPB SCH ×3 (10:48→23:14)
[2022-09-16] MEDS: Losartan 25 MG TAB PO SCH (10:50)
[2022-09-16] MEDS: Carvedilol 25 MG TAB PO SCH ×2 (10:51→15:51)
[2022-09-16] MEDS: Pantoprazole 40 MG VIAL IVP SCH ×2 (10:52→21:44)
[2022-09-16] MEDS: Folic Acid 1 MG TAB PO SCH (10:52)
[2022-09-16] MEDS: Floranex 1 GM Packet PO SCH (10:52)
[2022-09-16] MEDS: Vancomycin 1 GM in Premix Bag 1 BAG IVPB SCH (11:17)
[2022-09-16] MEDS ORDERED: Cholestyramine/Aspartame 4 gm Packet PO SCH (11:30)
[2022-09-16 12:43] LABS: Anion Gap 11 mmol/L (10-20); BUN (Urea Nitrogen) 13 mg/dL (9.8-20.1); Calc. Creatinine Clearance 62 mL/min (70-130); Calcium 8.1 mg/dL (7.8-10.44); Carbon Dioxide 26 mmol/L (23-31); Chloride 104 mmol/L (98-107); Estimated GFR 103; Glucose 137 mg/dL (80-115); Sodium 138 mmol/L (136-145)
[2022-09-16] MEDS ORDERED: Potassium Chloride 20 MEQ TAB PO SCH (13:15)
[2022-09-16] MEDS: Micafungin 100 MG in Sodium Chloride 0.9% 100 ML IVPB SCH (13:49)
[2022-09-16] MEDS: Potassium Bicarbonate/Cit Ac 25 MEQ TAB PO SCH ×2 (15:52→21:44)
[2022-09-16] MEDS: Acetaminophen 325 MG TAB PO PRN (16:06)
[2022-09-16] MEDS: Cholestyramine/Aspartame 4 gm Packet PO SCH (22:40)
[2022-09-16 23:40] LABS: Vancomycin, Trough 26.8 ug/mL
[2022-09-17] MEDS: Vancomycin 1 GM in Premix Bag 1 BAG IVPB SCH (00:50)
[2022-09-17] MEDS: Potassium Bicarbonate/Cit Ac 25 MEQ TAB PO SCH (01:10)
[2022-09-17] MEDS: Acetaminophen 325 MG TAB PO PRN (03:52)
[2022-09-17 05:23] LABS: #Eosinphils 0.1 thou/uL (0.0-0.7); #Lymphocytes 0.5 thou/uL (1.20-3.40); #Monocytes 0.4 thou/uL (0.11-0.59); #Neutrophils 7.1 thou/uL (1.40-6.50); %Basophils 0.2 % (0.0-1.0); %Eosinophils 0.9 % (0.0-10.0); %Lymphocytes 5.6 % (21.0-51.0); %Monocytes 4.4 % (0.0-10.0); Hemoglobin 8.2 g/dL (12.0-16.0); Mean Corpuscular HGB CONC 31.3 g/dL (32.0-36.0); Mean Corpuscular Hemoglobin 28.8 pg (27.0-31.0); Mean Corpuscular Volume 91.9 fl (78.0-98.0); Platelet Count 175 10x3/uL (130-400); RBC Distribution Width 17.9 % (11.5-14.5); Red Blood Cell (RBC) Count 2.85 mill/uL (4.20-5.40)
[2022-09-17 05:28] LABS: Anion Gap 10 mmol/L (10-20); BUN (Urea Nitrogen) 13 mg/dL (9.8-20.1); Calc. Creatinine Clearance 57 mL/min (70-130); Calcium 8.4 mg/dL (7.8-10.44); Carbon Dioxide 28 mmol/L (23-31); Chloride 104 mmol/L (98-107); Estimated GFR 101; Glucose 155 mg/dL (80-115); Potassium 3.3 mmol/L (3.5-5.1); Sodium 139 mmol/L (136-145)
[2022-09-17] MEDS: clonazePAM 0.5 MG TAB PO SCH ×2 (05:47→17:59)
[2022-09-17] MEDS: metroNIDAZOLE 500 MG in Premix Bag 1 BAG IVPB SCH ×3 (05:49→21:07)
[2022-09-17] MEDS: HYDROcodone/Acetaminophen 5/325 mg Tablet PO PRN ×4 (06:13→21:06)
[2022-09-17] MEDS: Carvedilol 25 MG TAB PO SCH ×2 (09:22→17:57)
[2022-09-17] MEDS: Folic Acid 1 MG TAB PO SCH (09:24)
[2022-09-17] MEDS: Losartan 25 MG TAB PO SCH (09:24)
[2022-09-17] MEDS: Pantoprazole 40 MG VIAL IVP SCH ×2 (09:25→21:07)
[2022-09-17] MEDS: Piperacillin/Tazobactam 3.375 GM in Sodium Chloride 0.9% 100 ML IVPB SCH ×3 (09:25→23:12)
[2022-09-17] MEDS: Floranex 1 GM Packet PO SCH (09:26)
[2022-09-17] MEDS: Cholestyramine/Aspartame 4 gm Packet PO SCH ×2 (09:27→21:07)
[2022-09-17] MEDS: Ondansetron PF 4 MG/2 ML Vial IVP PRN (09:31)
[2022-09-17] MEDS ORDERED: clonazePAM 0.5 MG TAB PO SCH ×2 (10:15→21:00)
[2022-09-17] MEDS: Vancomycin HCl 750 MG in Sodium Chloride 0.9% 250 ML 250 ML IVPB SCH ×2 (13:12→23:13)
[2022-09-17] MEDS: Micafungin 100 MG in Sodium Chloride 0.9% 100 ML IVPB SCH (13:13)
[2022-09-18] MEDS: metroNIDAZOLE 500 MG in Premix Bag 1 BAG IVPB SCH ×3 (05:41→20:53)
[2022-09-18 08:38] LABS: ALT (SGPT) 12 U/L (8-55); AST (SGOT) 18 U/L (5-34); Albumin 2.5 g/dL (3.4-4.8); Alkaline Phosphatase 64 U/L (40-110); Bilirubin, Direct 0.2 mg/dL (0.1-0.3); Bilirubin, Total 0.3 mg/dL (0.2-1.2); Protein, Total 5.5 g/dL (5.8-8.1)
[2022-09-18] MEDS: Folic Acid 1 MG TAB PO SCH (09:37)
[2022-09-18] MEDS: clonazePAM 0.5 MG TAB PO SCH ×2 (09:38→17:27)
[2022-09-18] MEDS: Carvedilol 25 MG TAB PO SCH ×2 (09:41→17:27)
[2022-09-18] MEDS: Losartan 25 MG TAB PO SCH (09:42)
[2022-09-18] MEDS: Floranex 1 GM Packet PO SCH (09:42)
[2022-09-18] MEDS: Cholestyramine/Aspartame 4 gm Packet PO SCH ×2 (09:44→20:53)
[2022-09-18] MEDS: Pantoprazole 40 MG VIAL IVP SCH ×2 (09:44→20:53)
[2022-09-18] MEDS: Piperacillin/Tazobactam 3.375 GM in Sodium Chloride 0.9% 100 ML IVPB SCH ×2 (09:44→17:27)
[2022-09-18] MEDS: HYDROcodone/Acetaminophen 5/325 mg Tablet PO PRN ×2 (10:14→14:59)
[2022-09-18] MEDS: Micafungin 100 MG in Sodium Chloride 0.9% 100 ML IVPB SCH (11:44)
[2022-09-18] MEDS: VANCOMYCIN IVPB SCH (13:27)
[2022-09-19] MEDS: Piperacillin/Tazobactam 3.375 GM in Sodium Chloride 0.9% 100 ML IVPB SCH ×4 (00:33→23:25)
[2022-09-19] MEDS: VANCOMYCIN IVPB SCH (00:33)
[2022-09-19] MEDS: metroNIDAZOLE 500 MG in Premix Bag 1 BAG IVPB SCH ×3 (05:33→22:19)
[2022-09-19] MEDS: clonazePAM 0.5 MG TAB PO SCH ×2 (05:34→17:53)
[2022-09-19] MEDS ORDERED: Carvedilol 6.25 MG TAB PO SCH (09:00)
[2022-09-19] MEDS: Losartan 25 MG TAB PO SCH (09:35)
[2022-09-19] MEDS: Folic Acid 1 MG TAB PO SCH (09:36)
[2022-09-19] MEDS: Thiamine 100 MG TAB PO SCH (09:37)
[2022-09-19] MEDS: HYDROcodone/Acetaminophen 5/325 mg Tablet PO PRN ×4 (09:37→22:27)
[2022-09-19] MEDS: Floranex 1 GM Packet PO SCH (09:39)
[2022-09-19] MEDS: Cholestyramine/Aspartame 4 gm Packet PO SCH ×2 (09:39→23:21)
[2022-09-19] MEDS: Pantoprazole 40 MG VIAL IVP SCH ×2 (09:39→21:56)
[2022-09-19] MEDS: Carvedilol 6.25 MG TAB PO SCH ×3 (09:43→22:06)
[2022-09-19 10:02] LABS: Vancomycin, Trough 21.8 ug/mL
[2022-09-19] MEDS: Carvedilol 25 MG TAB PO SCH (10:11)
[2022-09-19] MEDS: Micafungin 100 MG in Sodium Chloride 0.9% 100 ML IVPB SCH (11:06)
[2022-09-19] MEDS: Acetaminophen 325 MG TAB PO PRN (11:12)
[2022-09-19 12:33] LABS: #Eosinphils 0.2 thou/uL (0.0-0.7); #Lymphocytes 0.7 thou/uL (1.20-3.40); #Monocytes 0.6 thou/uL (0.11-0.59); #Neutrophils 5.2 thou/uL (1.40-6.50); %Eosinophils 2.3 % (0.0-10.0); %Monocytes 8.4 % (0.0-10.0); %Neutrophils 78.2 % (42.0-75.0); Hemoglobin 6.9 g/dL (12.0-16.0); Mean Corpuscular HGB CONC 31.2 g/dL (32.0-36.0); Mean Corpuscular Hemoglobin 28.7 pg (27.0-31.0); Mean Platelet Volume 9.7 fL (7.4-10.4); Platelet Count 174 10x3/uL (130-400); RBC Distribution Width 18.2 % (11.5-14.5); Red Blood Cell (RBC) Count 2.41 mill/uL (4.20-5.40); White Blood Cell (WBC) Count 6.7 10x3/uL (4.8-10.8)
[2022-09-19 12:51] LABS: Chloride 108 mmol/L (98-107); Potassium 3.1 mmol/L (3.5-5.1); Sodium 137 mmol/L (136-145)
[2022-09-19 12:52] LABS: Glucose 109 mg/dL (80-115)
[2022-09-19 12:53] LABS: Anion Gap 9 mmol/L (10-20); Carbon Dioxide 23 mmol/L (23-31)
[2022-09-19 12:55] LABS: Calc. Creatinine Clearance 108 mL/min (70-130); Estimated GFR 106
[2022-09-19 12:56] LABS: BUN (Urea Nitrogen) 14 mg/dL (9.8-20.1)
[2022-09-19] MEDS ORDERED: Potassium Bicarbonate/Cit Ac 20 MEQ TAB PO SCH (13:15)
[2022-09-20] MEDS: HYDROcodone/Acetaminophen 5/325 mg Tablet PO PRN ×5 (05:02→21:17)
[2022-09-20] MEDS: clonazePAM 0.5 MG TAB PO SCH ×2 (05:03→17:31)
[2022-09-20] MEDS: metroNIDAZOLE 500 MG in Premix Bag 1 BAG IVPB SCH ×3 (05:05→23:00)
[2022-09-20 08:47] LABS: #Eosinphils 0.1 thou/uL (0.0-0.7); #Lymphocytes 0.8 thou/uL (1.20-3.40); #Monocytes 0.4 thou/uL (0.11-0.59); #Neutrophils 4.9 thou/uL (1.40-6.50); %Basophils 0.5 % (0.0-1.0); %Eosinophils 1.7 % (0.0-10.0); %Lymphocytes 12.9 % (21.0-51.0); %Monocytes 6.3 % (0.0-10.0); %Neutrophils 78.6 % (42.0-75.0); Hemoglobin 8.1 g/dL (12.0-16.0); Mean Corpuscular HGB CONC 30.2 g/dL (32.0-36.0); Mean Corpuscular Hemoglobin 28.4 pg (27.0-31.0); Mean Corpuscular Volume 94.1 fl (78.0-98.0); Mean Platelet Volume 10.1 fL (7.4-10.4); Platelet Count 203 10x3/uL (130-400); RBC Distribution Width 18.7 % (11.5-14.5); Red Blood Cell (RBC) Count 2.83 mill/uL (4.20-5.40); White Blood Cell (WBC) Count 6.3 10x3/uL (4.8-10.8)
[2022-09-20] MEDS: Folic Acid 1 MG TAB PO SCH (08:53)
[2022-09-20] MEDS: Thiamine 100 MG TAB PO SCH (08:53)
[2022-09-20] MEDS: Carvedilol 6.25 MG TAB PO SCH ×3 (08:54→21:16)
[2022-09-20] MEDS: Losartan 25 MG TAB PO SCH (08:55)
[2022-09-20 08:56] LABS: Anion Gap 12 mmol/L (10-20); BUN (Urea Nitrogen) 13 mg/dL (9.8-20.1); CRP (Inflammatory) 4.63 mg/dL (= or < 0.5); Calc. Creatinine Clearance 101 mL/min (70-130); Calcium 8.4 mg/dL (7.8-10.44); Carbon Dioxide 22 mmol/L (23-31); Chloride 107 mmol/L (98-107); Estimated GFR 105; Glucose 116 mg/dL (80-115); Potassium 3.7 mmol/L (3.5-5.1); Sodium 137 mmol/L (136-145)
[2022-09-20] MEDS: Piperacillin/Tazobactam 3.375 GM in Sodium Chloride 0.9% 100 ML IVPB SCH ×3 (08:59→23:50)
[2022-09-20] MEDS: Pantoprazole 40 MG VIAL IVP SCH ×2 (09:00→21:16)
[2022-09-20] MEDS: Cholestyramine/Aspartame 4 gm Packet PO SCH ×2 (09:00→23:00)
[2022-09-20] MEDS: Floranex 1 GM Packet PO SCH (09:25)
[2022-09-20] MEDS: Micafungin 100 MG in Sodium Chloride 0.9% 100 ML IVPB SCH (12:39)
[2022-09-20 15:06] VITALS: BMI 19.9
[2022-09-21] MEDS: metroNIDAZOLE 500 MG in Premix Bag 1 BAG IVPB SCH ×3 (05:01→21:31)
[2022-09-21] MEDS: clonazePAM 0.5 MG TAB PO SCH ×2 (05:01→17:28)
[2022-09-21] MEDS: HYDROcodone/Acetaminophen 5/325 mg Tablet PO PRN ×4 (05:15→18:02)
[2022-09-21] MEDS: Carvedilol 6.25 MG TAB PO SCH ×3 (09:27→20:19)
[2022-09-21] MEDS: Folic Acid 1 MG TAB PO SCH (09:27)
[2022-09-21] MEDS: Thiamine 100 MG TAB PO SCH (09:27)
[2022-09-21] MEDS: Losartan 25 MG TAB PO SCH (09:28)
[2022-09-21] MEDS: Pantoprazole 40 MG VIAL IVP SCH ×2 (09:28→20:24)
[2022-09-21] MEDS: Piperacillin/Tazobactam 3.375 GM in Sodium Chloride 0.9% 100 ML IVPB SCH ×2 (09:28→15:32)
[2022-09-21] MEDS: Floranex 1 GM Packet PO SCH (09:29)
[2022-09-21] MEDS: Acetaminophen 325 MG TAB PO PRN ×2 (11:47→15:38)
[2022-09-21] MEDS: Cholestyramine/Aspartame 4 gm Packet PO SCH ×2 (11:48→21:31)
[2022-09-21] MEDS: Vancomycin HCl 250 MG in Sodium Chloride 0.9% 100 ML IVPB SCH (13:51)
[2022-09-22] MEDS: Vancomycin HCl 250 MG in Sodium Chloride 0.9% 100 ML IVPB SCH ×2 (00:31→13:38)
[2022-09-22] MEDS: HYDROcodone/Acetaminophen 5/325 mg Tablet PO PRN ×5 (01:38→22:40)
[2022-09-22] MEDS: Piperacillin/Tazobactam 3.375 GM in Sodium Chloride 0.9% 100 ML IVPB SCH ×3 (01:38→15:30)
[2022-09-22] MEDS: metroNIDAZOLE 500 MG in Premix Bag 1 BAG IVPB SCH ×3 (05:02→21:09)
[2022-09-22] MEDS: clonazePAM 0.5 MG TAB PO SCH ×2 (05:03→17:47)
[2022-09-22] MEDS: Pantoprazole 40 MG VIAL IVP SCH ×2 (09:06→21:25)
[2022-09-22] MEDS: Losartan 25 MG TAB PO SCH (09:07)
[2022-09-22] MEDS: Folic Acid 1 MG TAB PO SCH (09:07)
[2022-09-22] MEDS: Carvedilol 6.25 MG TAB PO SCH ×3 (09:07→21:08)
[2022-09-22] MEDS: Thiamine 100 MG TAB PO SCH (09:07)
[2022-09-22] MEDS: Floranex 1 GM Packet PO SCH (09:07)
[2022-09-22] MEDS: Acetaminophen 325 MG TAB PO PRN ×2 (10:43→21:08)
[2022-09-22] MEDS: Cholestyramine/Aspartame 4 gm Packet PO SCH ×2 (10:43→21:09)
[2022-09-22 23:39] LABS: Vancomycin, Trough 10.5 ug/mL
[2022-09-22 23:41] LABS: ALT (SGPT) 9 U/L (8-55); AST (SGOT) 15 U/L (5-34); Albumin 1.9 g/dL (3.4-4.8); Alkaline Phosphatase 64 U/L (40-110); Bilirubin, Direct 0.1 mg/dL (0.1-0.3); Bilirubin, Total 0.2 mg/dL (0.2-1.2)
[2022-09-23] MEDS: Vancomycin HCl 250 MG in Sodium Chloride 0.9% 100 ML IVPB SCH ×2 (00:32→12:03)
[2022-09-23] MEDS: Piperacillin/Tazobactam 3.375 GM in Sodium Chloride 0.9% 100 ML IVPB SCH ×4 (01:20→23:16)
[2022-09-23] MEDS: HYDROcodone/Acetaminophen 5/325 mg Tablet PO PRN ×5 (02:05→22:09)
[2022-09-23] MEDS: metroNIDAZOLE 500 MG in Premix Bag 1 BAG IVPB SCH ×3 (06:08→22:10)
[2022-09-23] MEDS: clonazePAM 0.5 MG TAB PO SCH ×2 (06:08→17:26)
[2022-09-23 06:56] LABS: #Eosinphils 0.2 thou/uL (0.0-0.7); #Monocytes 0.6 thou/uL (0.11-0.59); #Neutrophils 5.7 thou/uL (1.40-6.50); %Basophils 0.2 % (0.0-1.0); %Eosinophils 2.8 % (0.0-10.0); %Lymphocytes 13.9 % (21.0-51.0); %Monocytes 7.5 % (0.0-10.0); %Neutrophils 75.7 % (42.0-75.0); Hemoglobin 8.4 g/dL (12.0-16.0); Mean Corpuscular HGB CONC 31.8 g/dL (32.0-36.0); Mean Corpuscular Hemoglobin 28.8 pg (27.0-31.0); Mean Corpuscular Volume 90.6 fl (78.0-98.0); Mean Platelet Volume 9.4 fL (7.4-10.4); Platelet Count 277 10x3/uL (130-400); RBC Distribution Width 20.1 % (11.5-14.5); Red Blood Cell (RBC) Count 2.91 mill/uL (4.20-5.40); White Blood Cell (WBC) Count 7.5 10x3/uL (4.8-10.8)
[2022-09-23 07:07] LABS: Anion Gap 11 mmol/L (10-20); BUN (Urea Nitrogen) 9 mg/dL (9.8-20.1); CRP (Inflammatory) 2.07 mg/dL (= or < 0.5); Calc. Creatinine Clearance 121 mL/min (70-130); Calcium 8.4 mg/dL (7.8-10.44); Carbon Dioxide 25 mmol/L (23-31); Chloride 103 mmol/L (98-107); Estimated GFR 109; Glucose 95 mg/dL (80-115); Potassium 3.2 mmol/L (3.5-5.1); Sodium 136 mmol/L (136-145)
[2022-09-23] MEDS ORDERED: Potassium Chloride 20 MEQ TAB PO SCH ×2 (08:00→08:30)
[2022-09-23] MEDS ORDERED: Metoclopramide HCl 10 MG/2 ML VIAL IVP SCH (09:00)
[2022-09-23] MEDS: Pantoprazole 40 MG VIAL IVP SCH ×2 (09:09→19:57)
[2022-09-23] MEDS: Floranex 1 GM Packet PO SCH (09:09)
[2022-09-23] MEDS: Losartan 25 MG TAB PO SCH (09:09)
[2022-09-23] MEDS: Folic Acid 1 MG TAB PO SCH (09:09)
[2022-09-23] MEDS: Carvedilol 6.25 MG TAB PO SCH ×3 (09:10→19:53)
[2022-09-23] MEDS: Thiamine 100 MG TAB PO SCH (09:10)
[2022-09-23] MEDS: Cholestyramine/Aspartame 4 gm Packet PO SCH ×2 (11:02→23:16)
[2022-09-23] MEDS ORDERED: Benzonatate 100 MG CAP PO PRN (17:30)
[2022-09-23] MEDS: Acetaminophen 325 MG TAB PO PRN (19:51)
[2022-09-24] MEDS: Vancomycin HCl 250 MG in Sodium Chloride 0.9% 100 ML IVPB SCH ×2 (00:59→12:34)
[2022-09-24] MEDS: HYDROcodone/Acetaminophen 5/325 mg Tablet PO PRN ×5 (04:16→22:17)
[2022-09-24] MEDS: metroNIDAZOLE 500 MG in Premix Bag 1 BAG IVPB SCH ×3 (06:02→20:59)
[2022-09-24] MEDS: clonazePAM 0.5 MG TAB PO SCH ×2 (06:02→17:09)
[2022-09-24 06:21] LABS: #Eosinphils 0.1 thou/uL (0.0-0.7); #Lymphocytes 0.8 thou/uL (1.20-3.40); #Monocytes 0.5 thou/uL (0.11-0.59); #Neutrophils 4.4 thou/uL (1.40-6.50); %Basophils 0.6 % (0.0-1.0); %Eosinophils 2.3 % (0.0-10.0); %Neutrophils 74.1 % (42.0-75.0); Mean Corpuscular HGB CONC 31.9 g/dL (32.0-36.0); Mean Corpuscular Hemoglobin 29.4 pg (27.0-31.0); Mean Platelet Volume 9.3 fL (7.4-10.4); Platelet Count 277 10x3/uL (130-400); RBC Distribution Width 20.9 % (11.5-14.5); Red Blood Cell (RBC) Count 2.72 mill/uL (4.20-5.40); White Blood Cell (WBC) Count 5.9 10x3/uL (4.8-10.8)
[2022-09-24 06:48] LABS: Anion Gap 10 mmol/L (10-20); BUN (Urea Nitrogen) 9 mg/dL (9.8-20.1); Calc. Creatinine Clearance 118 mL/min (70-130); Calcium 8.1 mg/dL (7.8-10.44); Carbon Dioxide 27 mmol/L (23-31); Chloride 103 mmol/L (98-107); Estimated GFR 108; Glucose 104 mg/dL (80-115); Potassium 3.4 mmol/L (3.5-5.1); Sodium 137 mmol/L (136-145)
[2022-09-24] MEDS: Losartan 25 MG TAB PO SCH (09:06)
[2022-09-24] MEDS: Folic Acid 1 MG TAB PO SCH (09:07)
[2022-09-24] MEDS: Carvedilol 6.25 MG TAB PO SCH ×3 (09:07→20:57)
[2022-09-24] MEDS: Piperacillin/Tazobactam 3.375 GM in Sodium Chloride 0.9% 100 ML IVPB SCH ×2 (09:08→15:42)
[2022-09-24] MEDS: Thiamine 100 MG TAB PO SCH (09:08)
[2022-09-24] MEDS: Floranex 1 GM Packet PO SCH (09:08)
[2022-09-24] MEDS: Pantoprazole 40 MG VIAL IVP SCH ×2 (09:08→20:57)
[2022-09-24] MEDS ORDERED: Potassium Chloride 20 MEQ TAB PO SCH (10:00)
[2022-09-24] MEDS: Potassium Chloride 20 MEQ in Premix Bag 1 BAG IVPB SCH ×2 (10:26→12:29)
[2022-09-24] MEDS: Cholestyramine/Aspartame 4 gm Packet PO SCH ×2 (10:26→22:18)
[2022-09-24] MEDS ORDERED: Iopamidol-370 76% 500 ML 1 ML ONE (10:47)
[2022-09-25] MEDS: Piperacillin/Tazobactam 3.375 GM in Sodium Chloride 0.9% 100 ML IVPB SCH ×3 (00:34→15:36)
[2022-09-25] MEDS: Vancomycin HCl 250 MG in Sodium Chloride 0.9% 100 ML IVPB SCH ×2 (00:34→13:02)
[2022-09-25] MEDS: Acetaminophen 325 MG TAB PO PRN ×3 (00:53→14:03)
[2022-09-25] MEDS: HYDROcodone/Acetaminophen 5/325 mg Tablet PO PRN ×5 (01:53→21:44)
[2022-09-25] MEDS: clonazePAM 0.5 MG TAB PO SCH ×2 (05:23→17:29)
[2022-09-25] MEDS: metroNIDAZOLE 500 MG in Premix Bag 1 BAG IVPB SCH ×3 (05:25→21:39)
[2022-09-25 06:33] LABS: #Eosinphils 0.2 thou/uL (0.0-0.7); #Lymphocytes 0.8 thou/uL (1.20-3.40); #Monocytes 0.6 thou/uL (0.11-0.59); #Neutrophils 4.7 thou/uL (1.40-6.50); %Basophils 0.4 % (0.0-1.0); %Eosinophils 3.2 % (0.0-10.0); %Lymphocytes 11.9 % (21.0-51.0); %Monocytes 10.1 % (0.0-10.0); %Neutrophils 74.4 % (42.0-75.0); Mean Corpuscular HGB CONC 30.3 g/dL (32.0-36.0); Mean Corpuscular Hemoglobin 28.4 pg (27.0-31.0); Mean Platelet Volume 9.1 fL (7.4-10.4); Platelet Count 282 10x3/uL (130-400); RBC Distribution Width 21.5 % (11.5-14.5); Red Blood Cell (RBC) Count 2.81 mill/uL (4.20-5.40); White Blood Cell (WBC) Count 6.4 10x3/uL (4.8-10.8)
[2022-09-25 06:43] LABS: Anion Gap 12 mmol/L (10-20); BUN (Urea Nitrogen) 9 mg/dL (9.8-20.1); Calc. Creatinine Clearance 113 mL/min (70-130); Calcium 8.3 mg/dL (7.8-10.44); Carbon Dioxide 21 mmol/L (23-31); Chloride 106 mmol/L (98-107); Estimated GFR 107; Glucose 106 mg/dL (80-115); Potassium 4.4 mmol/L (3.5-5.1); Sodium 135 mmol/L (136-145)
[2022-09-25] MEDS: Thiamine 100 MG TAB PO SCH (08:25)
[2022-09-25] MEDS: Carvedilol 6.25 MG TAB PO SCH ×3 (08:25→21:39)
[2022-09-25] MEDS: Folic Acid 1 MG TAB PO SCH (08:26)
[2022-09-25] MEDS: Losartan 25 MG TAB PO SCH (08:26)
[2022-09-25] MEDS: Floranex 1 GM Packet PO SCH (08:27)
[2022-09-25] MEDS: Pantoprazole 40 MG VIAL IVP SCH ×2 (08:27→21:40)
[2022-09-25] MEDS: Cholestyramine/Aspartame 4 gm Packet PO SCH ×2 (11:15→21:39)
[2022-09-25 12:00] LABS: Vancomycin, Trough 7.5 ug/mL
[2022-09-25] MEDS ORDERED: Vancomycin HCl 500 MG in Sodium Chloride 0.9% 100 ML IVPB SCH (12:00)
[2022-09-26] MEDS: Piperacillin/Tazobactam 3.375 GM in Sodium Chloride 0.9% 100 ML IVPB SCH ×4 (00:55→23:42)
[2022-09-26] MEDS: HYDROcodone/Acetaminophen 5/325 mg Tablet PO PRN ×3 (05:01→13:25)
[2022-09-26] MEDS: clonazePAM 0.5 MG TAB PO SCH ×2 (05:02→17:16)
[2022-09-26] MEDS: metroNIDAZOLE 500 MG in Premix Bag 1 BAG IVPB SCH ×3 (05:02→21:46)
[2022-09-26 07:33] LABS: Anion Gap 11 mmol/L (10-20); BUN (Urea Nitrogen) 10 mg/dL (9.8-20.1); Calc. Creatinine Clearance 103 mL/min (70-130); Calcium 8.2 mg/dL (7.8-10.44); Carbon Dioxide 24 mmol/L (23-31); Chloride 104 mmol/L (98-107); Estimated GFR 105; Glucose 101 mg/dL (80-115); Sodium 135 mmol/L (136-145)
[2022-09-26 07:38] LABS: #Eosinphils 0.2 thou/uL (0.0-0.7); #Lymphocytes 0.8 thou/uL (1.20-3.40); #Monocytes 0.6 thou/uL (0.11-0.59); #Neutrophils 5.4 thou/uL (1.40-6.50); %Basophils 0.5 % (0.0-1.0); %Eosinophils 2.9 % (0.0-10.0); %Lymphocytes 11.7 % (21.0-51.0); %Monocytes 8.3 % (0.0-10.0); %Neutrophils 76.5 % (42.0-75.0); Hemoglobin 7.9 g/dL (12.0-16.0); Mean Corpuscular HGB CONC 30.4 g/dL (32.0-36.0); Mean Corpuscular Hemoglobin 28.5 pg (27.0-31.0); Mean Corpuscular Volume 93.8 fl (78.0-98.0); Mean Platelet Volume 8.8 fL (7.4-10.4); Platelet Count 297 10x3/uL (130-400); RBC Distribution Width 21.7 % (11.5-14.5); Red Blood Cell (RBC) Count 2.77 mill/uL (4.20-5.40)
[2022-09-26] MEDS: Carvedilol 6.25 MG TAB PO SCH ×3 (08:43→20:08)
[2022-09-26] MEDS: Floranex 1 GM Packet PO SCH (08:43)
[2022-09-26] MEDS: Folic Acid 1 MG TAB PO SCH (08:44)
[2022-09-26] MEDS: Losartan 25 MG TAB PO SCH (08:44)
[2022-09-26] MEDS: Pantoprazole 40 MG VIAL IVP SCH ×2 (08:46→20:08)
[2022-09-26] MEDS: Thiamine 100 MG TAB PO SCH (08:46)
[2022-09-26] MEDS: Cholestyramine/Aspartame 4 gm Packet PO SCH ×2 (13:26→21:46)
[2022-09-26] MEDS: Acetaminophen 325 MG TAB PO PRN (15:13)
[2022-09-27] MEDS: HYDROcodone/Acetaminophen 5/325 mg Tablet PO PRN ×4 (00:15→21:12)
[2022-09-27] MEDS: Acetaminophen 325 MG TAB PO PRN ×3 (03:35→20:19)
[2022-09-27 03:43] LABS: #Eosinphils 0.1 thou/uL (0.0-0.7); #Monocytes 0.7 thou/uL (0.11-0.59); #Neutrophils 7.1 thou/uL (1.40-6.50); %Basophils 0.3 % (0.0-1.0); %Eosinophils 1.3 % (0.0-10.0); %Lymphocytes 11.1 % (21.0-51.0); %Monocytes 8.1 % (0.0-10.0); %Neutrophils 79.1 % (42.0-75.0); Hemoglobin 8.3 g/dL (12.0-16.0); Mean Corpuscular Hemoglobin 29.8 pg (27.0-31.0); Mean Platelet Volume 8.8 fL (7.4-10.4); Platelet Count 264 10x3/uL (130-400); RBC Distribution Width 21.3 % (11.5-14.5); Red Blood Cell (RBC) Count 2.77 mill/uL (4.20-5.40); White Blood Cell (WBC) Count 8.9 10x3/uL (4.8-10.8)
[2022-09-27 04:00] LABS: Anion Gap 9 mmol/L (10-20); BUN (Urea Nitrogen) 9 mg/dL (9.8-20.1); Calc. Creatinine Clearance 113 mL/min (70-130); Calcium 8.5 mg/dL (7.8-10.44); Carbon Dioxide 29 mmol/L (23-31); Chloride 102 mmol/L (98-107); Estimated GFR 107; Glucose 88 mg/dL (80-115); Potassium 3.6 mmol/L (3.5-5.1); Sodium 136 mmol/L (136-145)
[2022-09-27] MEDS: clonazePAM 0.5 MG TAB PO SCH ×2 (05:03→17:14)
[2022-09-27] MEDS: metroNIDAZOLE 500 MG in Premix Bag 1 BAG IVPB SCH ×3 (05:03→20:14)
[2022-09-27] MEDS: Floranex 1 GM Packet PO SCH (09:42)
[2022-09-27] MEDS: Folic Acid 1 MG TAB PO SCH (09:43)
[2022-09-27] MEDS: Carvedilol 6.25 MG TAB PO SCH ×3 (09:43→20:13)
[2022-09-27] MEDS: Losartan 25 MG TAB PO SCH (09:43)
[2022-09-27] MEDS: Pantoprazole 40 MG VIAL IVP SCH ×2 (09:44→20:12)
[2022-09-27] MEDS: Thiamine 100 MG TAB PO SCH (09:46)
[2022-09-27] MEDS: Piperacillin/Tazobactam 3.375 GM in Sodium Chloride 0.9% 100 ML IVPB SCH ×3 (09:46→23:04)
[2022-09-27] MEDS: Cholestyramine/Aspartame 4 gm Packet PO SCH ×2 (13:03→20:12)
[2022-09-28] MEDS: clonazePAM 0.5 MG TAB PO SCH ×2 (05:21→17:38)
[2022-09-28] MEDS: metroNIDAZOLE 500 MG in Premix Bag 1 BAG IVPB SCH ×3 (05:22→20:18)
[2022-09-28] MEDS: HYDROcodone/Acetaminophen 5/325 mg Tablet PO PRN ×4 (05:22→23:57)
[2022-09-28 05:48] LABS: #Eosinphils 0.2 thou/uL (0.0-0.7); #Lymphocytes 0.7 thou/uL (1.20-3.40); #Monocytes 0.5 thou/uL (0.11-0.59); #Neutrophils 4.2 thou/uL (1.40-6.50); %Basophils 0.7 % (0.0-1.0); %Eosinophils 3.1 % (0.0-10.0); %Lymphocytes 11.7 % (21.0-51.0); %Monocytes 9.5 % (0.0-10.0); Hemoglobin 8.4 g/dL (12.0-16.0); Mean Corpuscular HGB CONC 31.3 g/dL (32.0-36.0); Mean Corpuscular Hemoglobin 29.2 pg (27.0-31.0); Mean Corpuscular Volume 93.2 fl (78.0-98.0); Mean Platelet Volume 8.5 fL (7.4-10.4); Platelet Count 263 10x3/uL (130-400); RBC Distribution Width 21.5 % (11.5-14.5); Red Blood Cell (RBC) Count 2.86 mill/uL (4.20-5.40); White Blood Cell (WBC) Count 5.7 10x3/uL (4.8-10.8)
[2022-09-28 06:16] LABS: Anion Gap 9 mmol/L (10-20); BUN (Urea Nitrogen) 9 mg/dL (9.8-20.1); Calc. Creatinine Clearance 110 mL/min (70-130); Calcium 8.4 mg/dL (7.8-10.44); Carbon Dioxide 27 mmol/L (23-31); Chloride 103 mmol/L (98-107); Estimated GFR 107; Glucose 79 mg/dL (80-115); Potassium 3.4 mmol/L (3.5-5.1); Sodium 136 mmol/L (136-145)
[2022-09-28] MEDS: Piperacillin/Tazobactam 3.375 GM in Sodium Chloride 0.9% 100 ML IVPB SCH ×3 (09:03→23:58)
[2022-09-28] MEDS: Folic Acid 1 MG TAB PO SCH (09:04)
[2022-09-28] MEDS: Carvedilol 6.25 MG TAB PO SCH ×3 (09:04→20:17)
[2022-09-28] MEDS: Losartan 25 MG TAB PO SCH (09:04)
[2022-09-28] MEDS: Floranex 1 GM Packet PO SCH (09:04)
[2022-09-28] MEDS: Thiamine 100 MG TAB PO SCH (09:05)
[2022-09-28] MEDS: Pantoprazole 40 MG VIAL IVP SCH ×2 (09:05→20:17)
[2022-09-28] MEDS: Cholestyramine/Aspartame 4 gm Packet PO SCH ×2 (09:05→20:18)
[2022-09-28] MEDS ORDERED: Potassium Chloride 20 MEQ TAB PO SCH (09:45)
[2022-09-28] MEDS: Ondansetron PF 4 MG/2 ML Vial IVP PRN (15:32)
[2022-09-28] MEDS: Acetaminophen 325 MG TAB PO PRN (20:16)
[2022-09-29] MEDS: metroNIDAZOLE 500 MG in Premix Bag 1 BAG IVPB SCH ×3 (05:14→21:14)
[2022-09-29] MEDS: clonazePAM 0.5 MG TAB PO SCH ×2 (05:15→17:16)
[2022-09-29] MEDS: HYDROcodone/Acetaminophen 5/325 mg Tablet PO PRN ×4 (05:38→21:07)
[2022-09-29 07:40] LABS: #Eosinphils 0.1 thou/uL (0.0-0.7); #Lymphocytes 0.9 thou/uL (1.20-3.40); #Monocytes 0.6 thou/uL (0.11-0.59); #Neutrophils 3.9 thou/uL (1.40-6.50); %Basophils 0.7 % (0.0-1.0); %Eosinophils 1.5 % (0.0-10.0); %Lymphocytes 16.3 % (21.0-51.0); %Monocytes 10.6 % (0.0-10.0); %Neutrophils 70.9 % (42.0-75.0); Hemoglobin 9.3 g/dL (12.0-16.0); Mean Corpuscular HGB CONC 30.9 g/dL (32.0-36.0); Mean Platelet Volume 8.3 fL (7.4-10.4); Platelet Count 325 10x3/uL (130-400); RBC Distribution Width 21.6 % (11.5-14.5); White Blood Cell (WBC) Count 5.6 10x3/uL (4.8-10.8)
[2022-09-29 07:54] LABS: Anion Gap 13 mmol/L (10-20); BUN (Urea Nitrogen) 7 mg/dL (9.8-20.1); Calc. Creatinine Clearance 103 mL/min (70-130); Calcium 8.5 mg/dL (7.8-10.44); Carbon Dioxide 22 mmol/L (23-31); Chloride 103 mmol/L (98-107); Estimated GFR 105; Glucose 87 mg/dL (80-115); Potassium 3.5 mmol/L (3.5-5.1); Sodium 134 mmol/L (136-145)
[2022-09-29] MEDS ORDERED: Potassium Chloride 20 MEQ TAB PO SCH (08:15)
[2022-09-29] MEDS: Floranex 1 GM Packet PO SCH (08:41)
[2022-09-29] MEDS: Cholestyramine/Aspartame 4 gm Packet PO SCH ×2 (08:41→21:08)
[2022-09-29] MEDS: Thiamine 100 MG TAB PO SCH (08:41)
[2022-09-29] MEDS: Folic Acid 1 MG TAB PO SCH (08:41)
[2022-09-29] MEDS: Carvedilol 6.25 MG TAB PO SCH ×3 (08:41→21:07)
[2022-09-29] MEDS: Potassium Bicarbonate/Cit Ac 20 MEQ TAB PO SCH (08:42)
[2022-09-29] MEDS: Losartan 25 MG TAB PO SCH (08:43)
[2022-09-29] MEDS: Pantoprazole 40 MG VIAL IVP SCH ×2 (08:43→21:08)
[2022-09-29] MEDS: Piperacillin/Tazobactam 3.375 GM in Sodium Chloride 0.9% 100 ML IVPB SCH ×2 (08:43→15:06)
[2022-09-29] MEDS: Ondansetron PF 4 MG/2 ML Vial IVP PRN ×2 (10:27→21:03)
[2022-09-29] MEDS: Acetaminophen 325 MG TAB PO PRN (12:25)
[2022-09-30] MEDS: Piperacillin/Tazobactam 3.375 GM in Sodium Chloride 0.9% 100 ML IVPB SCH ×3 (00:35→15:59)
[2022-09-30] MEDS: HYDROcodone/Acetaminophen 5/325 mg Tablet PO PRN ×5 (05:00→21:31)
[2022-09-30] MEDS: metroNIDAZOLE 500 MG in Premix Bag 1 BAG IVPB SCH ×3 (05:07→21:30)
[2022-09-30] MEDS: clonazePAM 0.5 MG TAB PO SCH ×2 (05:07→17:07)
[2022-09-30 08:38] LABS: #Basophils 0.1 thou/uL (0.0-0.2); #Eosinphils 0.1 thou/uL (0.0-0.7); #Lymphocytes 0.8 thou/uL (1.20-3.40); #Monocytes 0.5 thou/uL (0.11-0.59); #Neutrophils 4.9 thou/uL (1.40-6.50); %Basophils 0.8 % (0.0-1.0); %Lymphocytes 12.5 % (21.0-51.0); %Monocytes 7.4 % (0.0-10.0); %Neutrophils 78.3 % (42.0-75.0); Hemoglobin 10.2 g/dL (12.0-16.0); Mean Corpuscular HGB CONC 31.1 g/dL (32.0-36.0); Mean Corpuscular Hemoglobin 29.5 pg (27.0-31.0); Mean Corpuscular Volume 94.7 fl (78.0-98.0); Mean Platelet Volume 8.1 fL (7.4-10.4); Platelet Count 336 10x3/uL (130-400); RBC Distribution Width 21.4 % (11.5-14.5); Red Blood Cell (RBC) Count 3.45 mill/uL (4.20-5.40); White Blood Cell (WBC) Count 6.2 10x3/uL (4.8-10.8)
[2022-09-30 09:11] LABS: Anion Gap 13 mmol/L (10-20); BUN (Urea Nitrogen) 5 mg/dL (9.8-20.1); Calc. Creatinine Clearance 97 mL/min (70-130); Calcium 8.6 mg/dL (7.8-10.44); Carbon Dioxide 21 mmol/L (23-31); Chloride 104 mmol/L (98-107); Estimated GFR 104; Glucose 136 mg/dL (80-115); Potassium 3.7 mmol/L (3.5-5.1); Sodium 134 mmol/L (136-145)
[2022-09-30] MEDS: Potassium Bicarbonate/Cit Ac 20 MEQ TAB PO SCH (09:27)
[2022-09-30] MEDS: Cholestyramine/Aspartame 4 gm Packet PO SCH ×2 (09:27→21:31)
[2022-09-30] MEDS: Folic Acid 1 MG TAB PO SCH (09:28)
[2022-09-30] MEDS: Carvedilol 6.25 MG TAB PO SCH ×3 (09:28→21:31)
[2022-09-30] MEDS: Floranex 1 GM Packet PO SCH (09:29)
[2022-09-30] MEDS: Thiamine 100 MG TAB PO SCH (09:29)
[2022-09-30] MEDS: Losartan 25 MG TAB PO SCH (09:29)
[2022-09-30] MEDS: Pantoprazole 40 MG VIAL IVP SCH ×2 (09:29→21:31)
[2022-09-30] MEDS: Ondansetron PF 4 MG/2 ML Vial IVP PRN (17:12)
[2022-10-01] MEDS: Piperacillin/Tazobactam 3.375 GM in Sodium Chloride 0.9% 100 ML IVPB SCH ×4 (00:02→23:24)
[2022-10-01] MEDS: HYDROcodone/Acetaminophen 5/325 mg Tablet PO PRN ×6 (01:29→21:30)
[2022-10-01] MEDS: clonazePAM 0.5 MG TAB PO SCH ×2 (05:45→17:05)
[2022-10-01] MEDS: metroNIDAZOLE 500 MG in Premix Bag 1 BAG IVPB SCH ×3 (05:45→21:17)
[2022-10-01] MEDS: Ondansetron PF 4 MG/2 ML Vial IVP PRN ×2 (06:35→14:30)
[2022-10-01 07:12] LABS: #Basophils 0.1 thou/uL (0.0-0.2); #Eosinphils 0.2 thou/uL (0.0-0.7); #Lymphocytes 0.9 thou/uL (1.20-3.40); #Monocytes 0.6 thou/uL (0.11-0.59); #Neutrophils 3.5 thou/uL (1.40-6.50); %Basophils 1.3 % (0.0-1.0); %Eosinophils 3.1 % (0.0-10.0); %Lymphocytes 16.9 % (21.0-51.0); %Monocytes 11.9 % (0.0-10.0); %Neutrophils 66.7 % (42.0-75.0); Hemoglobin 9.7 g/dL (12.0-16.0); Mean Corpuscular HGB CONC 31.4 g/dL (32.0-36.0); Mean Corpuscular Hemoglobin 29.6 pg (27.0-31.0); Mean Corpuscular Volume 94.2 fl (78.0-98.0); Mean Platelet Volume 7.8 fL (7.4-10.4); Platelet Count 307 10x3/uL (130-400); RBC Distribution Width 21.6 % (11.5-14.5); Red Blood Cell (RBC) Count 3.27 mill/uL (4.20-5.40); White Blood Cell (WBC) Count 5.2 10x3/uL (4.8-10.8)
[2022-10-01 07:30] LABS: Anion Gap 11 mmol/L (10-20); BUN (Urea Nitrogen) 6 mg/dL (9.8-20.1); Calc. Creatinine Clearance 108 mL/min (70-130); Calcium 8.5 mg/dL (7.8-10.44); Carbon Dioxide 25 mmol/L (23-31); Chloride 104 mmol/L (98-107); Estimated GFR 106; Glucose 80 mg/dL (80-115); Potassium 3.1 mmol/L (3.5-5.1); Sodium 137 mmol/L (136-145)
[2022-10-01] MEDS ORDERED: Potassium Bicarbonate/Cit Ac 20 MEQ TAB PO SCH (08:15)
[2022-10-01] MEDS: Floranex 1 GM Packet PO SCH (09:56)
[2022-10-01] MEDS: Carvedilol 6.25 MG TAB PO SCH ×3 (09:56→21:16)
[2022-10-01] MEDS: Losartan 25 MG TAB PO SCH (09:57)
[2022-10-01] MEDS: Folic Acid 1 MG TAB PO SCH (09:57)
[2022-10-01] MEDS: Potassium Bicarbonate/Cit Ac 20 MEQ TAB PO SCH (09:57)
[2022-10-01] MEDS: Thiamine 100 MG TAB PO SCH (09:58)
[2022-10-01] MEDS: Pantoprazole 40 MG VIAL IVP SCH ×2 (09:58→21:16)
[2022-10-01] MEDS: Cholestyramine/Aspartame 4 gm Packet PO SCH ×2 (10:04→21:17)
[2022-10-02] MEDS: HYDROcodone/Acetaminophen 5/325 mg Tablet PO PRN ×4 (02:04→18:35)
[2022-10-02 05:00] VITALS: TEMP 97.8
[2022-10-02] MEDS: metroNIDAZOLE 500 MG in Premix Bag 1 BAG IVPB SCH ×2 (05:55→12:36)
[2022-10-02] MEDS: clonazePAM 0.5 MG TAB PO SCH ×2 (05:56→17:23)
[2022-10-02 06:45] LABS: #Eosinphils 0.1 thou/uL (0.0-0.7); #Lymphocytes 0.6 thou/uL (1.20-3.40); #Monocytes 0.5 thou/uL (0.11-0.59); #Neutrophils 4.1 thou/uL (1.40-6.50); %Basophils 0.8 % (0.0-1.0); %Eosinophils 1.9 % (0.0-10.0); %Lymphocytes 11.4 % (21.0-51.0); %Neutrophils 75.9 % (42.0-75.0); Hemoglobin 9.3 g/dL (12.0-16.0); Mean Corpuscular HGB CONC 31.5 g/dL (32.0-36.0); Mean Corpuscular Hemoglobin 29.8 pg (27.0-31.0); Mean Corpuscular Volume 94.9 fl (78.0-98.0); Mean Platelet Volume 8.6 fL (7.4-10.4); Platelet Count 218 10x3/uL (130-400); RBC Distribution Width 21.6 % (11.5-14.5); White Blood Cell (WBC) Count 5.4 10x3/uL (4.8-10.8)
[2022-10-02 07:07] LABS: Anion Gap 15 mmol/L (10-20); BUN (Urea Nitrogen) 5 mg/dL (9.8-20.1); Calc. Creatinine Clearance 94 mL/min (70-130); Calcium 8.3 mg/dL (7.8-10.44); Carbon Dioxide 22 mmol/L (23-31); Chloride 103 mmol/L (98-107); Estimated GFR 103; Glucose 83 mg/dL (80-115); Potassium 3.1 mmol/L (3.5-5.1); Sodium 137 mmol/L (136-145)
[2022-10-02] MEDS: Folic Acid 1 MG TAB PO SCH (08:59)
[2022-10-02] MEDS: Carvedilol 6.25 MG TAB PO SCH ×2 (08:59→16:37)
[2022-10-02] MEDS: Pantoprazole 40 MG VIAL IVP SCH (08:59)
[2022-10-02] MEDS: Potassium Bicarbonate/Cit Ac 20 MEQ TAB PO SCH (08:59)
[2022-10-02] MEDS: Floranex 1 GM Packet PO SCH (09:00)
[2022-10-02] MEDS: Losartan 25 MG TAB PO SCH (09:00)
[2022-10-02] MEDS: Thiamine 100 MG TAB PO SCH (09:00)
[2022-10-02] MEDS: Piperacillin/Tazobactam 3.375 GM in Sodium Chloride 0.9% 100 ML IVPB SCH ×2 (09:01→16:37)
[2022-10-02] MEDS: Cholestyramine/Aspartame 4 gm Packet PO SCH (10:35)
[2022-10-02] MEDS ORDERED: Potassium Bicarbonate/Cit Ac 20 MEQ TAB PO SCH (12:00)
[2022-10-02] MEDS: Acetaminophen 325 MG TAB PO PRN (12:35)
[2022-10-02] MEDS: Ondansetron PF 4 MG/2 ML Vial IVP PRN (16:40)
[2022-10-02 16:43] VITALS: BP 115/64
== END 2022-10-02 19:50 | DRG 853 ==
LOC: SURG A 18:36 → CCU 20:29 → T4-A 09-06 22:25 → 2NO 09-09 20:26 → T4-A 09-20 22:29
PROVIDERS: ADMIT Family Medicine; ATTEND Family Medicine
PROC: 3E03329 Introduction of Other Anti-infective into Peripheral Vein, Percutaneous Approach (ICD-10-PCS; 2022-09-05)
PROC: 00NX0ZZ Release Thoracic Spinal Cord, Open Approach (ICD-10-PCS; 2022-09-05)
PROC: 0DH67UZ Insertion of Feeding Device into Stomach, Via Natural or Artificial Opening (ICD-10-PCS; 2022-09-08)
PROC: 3E0G76Z Introduction of Nutritional Substance into Upper GI, Via Natural or Artificial Opening (ICD-10-PCS; 2022-09-08)
PROC: 0D9670Z Drainage of Stomach with Drainage Device, Via Natural or Artificial Opening (ICD-10-PCS; 2022-09-09)
PROC: 30233N1 Transfusion of Nonautologous Red Blood Cells into Peripheral Vein, Percutaneous Approach (ICD-10-PCS; 2022-09-09)
PROC: 02HV33Z Insertion of Infusion Device into Superior Vena Cava, Percutaneous Approach (ICD-10-PCS; principal; 2022-09-22)
PROC: B548ZZA Ultrasonography of Superior Vena Cava, Guidance (ICD-10-PCS; 2022-09-22)
DX: A41.81 Sepsis due to Enterococcus (principal); E43 Unspecified severe protein-calorie malnutrition; G06.2 Extradural and subdural abscess, unspecified; G93.41 Metabolic encephalopathy; J96.01 Acute respiratory failure with hypoxia; I51.81 Takotsubo syndrome; Z68.1 Body mass index [BMI] 19.9 or less, adult; M46.25 Osteomyelitis of vertebra, thoracolumbar region; F11.20 Opioid dependence, uncomplicated; G72.81 Critical illness myopathy; G82.20 Paraplegia, unspecified; I47.20 Ventricular tachycardia, unspecified; J98.11 Atelectasis; D62 Acute posthemorrhagic anemia; I47.1 Supraventricular tachycardia; K52.1 Toxic gastroenteritis and colitis; J90 Pleural effusion, not elsewhere classified; K90.9 Intestinal malabsorption, unspecified; A40.8 Other streptococcal sepsis; Z20.822 Contact with and (suspected) exposure to COVID-19; I10 Essential (primary) hypertension; T45.1X5A Adverse effect of antineoplastic and immunosuppressive drugs, initial encounter; R65.20 Severe sepsis without septic shock; D63.8 Anemia in other chronic diseases classified elsewhere; F41.9 Anxiety disorder, unspecified; R33.9 Retention of urine, unspecified; E87.6 Hypokalemia; M81.0 Age-related osteoporosis without current pathological fracture; K59.03 Drug induced constipation; T40.2X5A Adverse effect of other opioids, initial encounter; G89.4 Chronic pain syndrome; Z88.5 Allergy status to narcotic agent; Z88.8 Allergy status to other drugs, medicaments and biological substances; Z79.899 Other long term (current) drug therapy; Z79.82 Long term (current) use of aspirin; Z79.52 Long term (current) use of systemic steroids; Z85.01 Personal history of malignant neoplasm of esophagus
CPT/HCPCS: 36415; 36416; 36430; 36569; 71045; 71260; 74018; 74176; 74177; 80048; 80061; 80076; 80202; 81001; 81003; 81015; 82565; 83036; 83605; 83735; 84443; 84484; 85025; 86140; 86850; 86900; 86901; 87040; 87070; 87076; 87077; 87081; 87086; 87186; 87205; 87324; 87449; 87811; 87899; 93005; 93010; 93970; 94760; 97139; C1751; C9113; J0290; J0360; J0696; J1650; J1940; J2248; J2272; J2405; J2543; J2704; J2765; J3370; J3370-JW; J3371; J3411; J3475; J3480; J3490; J7030; J7050; P9016; P9045; P9047; Q9967

== ENCOUNTER 2022-12-08 09:56 | Emergency (ER) | payer MEDICARE ==
[2022-12-08 10:43] LABS: #Eosinphils 0.2 thou/uL (0.0-0.7); #Monocytes 1.1 thou/uL (0.11-0.59); #Neutrophils 4.7 thou/uL (1.40-6.50); %Basophils 0.3 % (0.0-1.0); %Eosinophils 2.6 % (0.0-10.0); %Lymphocytes 13.1 % (21.0-51.0); %Monocytes 15.4 % (0.0-10.0); %Neutrophils 68.2 % (42.0-75.0); Hemoglobin 9.5 g/dL (12.0-16.0); Mean Corpuscular HGB CONC 30.4 g/dL (32.0-36.0); Mean Corpuscular Hemoglobin 28.5 pg (27.0-31.0); Mean Corpuscular Volume 93.7 fl (78.0-98.0); Platelet Count 120 10x3/uL (130-400); RBC Distribution Width 17.8 % (11.5-14.5); Red Blood Cell (RBC) Count 3.33 mill/uL (4.20-5.40); White Blood Cell (WBC) Count 6.9 10x3/uL (4.8-10.8)
[2022-12-08 11:08] LABS: ALT (SGPT) 12 U/L (8-55); AST (SGOT) 15 U/L (5-34); Alkaline Phosphatase 86 U/L (40-110); Anion Gap 16 mmol/L (10-20); BUN (Urea Nitrogen) 19 mg/dL (9.8-20.1); Bilirubin, Total Less than 0.2 mg/dL (0.2-1.2); Calc. Creatinine Clearance 0 mL/min (70-130); Calcium 8.7 mg/dL (7.8-10.44); Carbon Dioxide 20 mmol/L (23-31); Chloride 106 mmol/L (98-107); Estimated GFR 100; Globulin 3.2 g/dL (2.4-3.5); Glucose 85 mg/dL (80-115); Potassium 3.5 mmol/L (3.5-5.1); Protein, Total 6.2 g/dL (5.8-8.1); Sodium 138 mmol/L (136-145)
[2022-12-08 11:25] LABS: Bilirubin Negative (Negative); Blood, Urine 3+ (Negative); Clarity Turbid (Clear); Glucose, Urine (Dipstick) Normal (Negative); Ketone, Urine Negative (Negative); Leukocyte 500 Leu/uL (Negative); Nitrite 2+ (Negative); Protein, Urine (Dipstick) 50 mg/dL (Neg-Trace); Specific Gravity, Urine 1.026 (1.002-1.036); Squamous Epithelial 0-3 HPF (0-3); Urobilinogen Normal mg/dL (Less than 2)
[2022-12-08 11:34] LABS: Bacteria/HPF 2+ HPF (None Seen); WBC/HPF 21-50 HPF (0-3)
== END 2022-12-08 12:39 | disposition home or self-care (01) ==
LOC: ERS 09:56
DX: N39.0 Urinary tract infection, site not specified (principal); E86.0 Dehydration; I10 Essential (primary) hypertension
CPT/HCPCS: 36415; 71045; 80053; 81003; 81015; 83605; 87040; 87077; 87086; 87186; 96360; 96361